=== PATIENT | male | born 1980 | race Hispanic/Latino ===

== ENCOUNTER 2017-05-21 14:27 | Emergency (ER) | payer SELFPAY ==
[2017-05-21] MEDS ORDERED: ONDANSETRON 4 MG (ODT) TAB ONE (15:46)
--- NOTE | 2017-05-21 16:08 | ER ---
Nurse's Notes [facility] Name: Anirudh Armando Age: 36 yrs Sex: Male : 1980 Arrival Date: 05/21/2017 Time: 14:28 Bed 18 Private MD: Diagnosis: Nausea Presentation: 05/21 14:38 Presenting complaint: Patient states: "I overheated and got dehydrated. I have bipolar lk1 disorder and PTSD and anxiety. I felt like I was going to and my whole body got numb and I was scared. My hand was cramped and I got light headed. I feel better, but my hands are still tingling." Denies suicidal ideations at this time. Transition of care: patient was not received from another setting of care. Onset of symptoms was May 21, 2017 at 13:30. Care prior to arrival: None. 14:38 Method Of Arrival: Ambulatory lk1 14:38 Acuity: ADOLPH 3 lk1 Triage Assessment: 14:42 General: Appears in no apparent distress. Behavior is calm, cooperative, appropriate lk1 for age. Pain: Complains of pain in right hand and left hand Pain currently is 10 out of 10 on a pain scale. Derm: Skin is pink, warm \\T\\ dry. Historical: - Allergies: 14:41 No Known Drug Allergies; lk1 - PMHx: 14:41 Anxiety; Bipolar disorder; Depression; PTSD; lk1 - PSHx: 14:41 None; lk1 - Immunization history:: Adult Immunizations up to date. - Social history:: Smoking status: Patient uses tobacco products, smokes one-half pack cigarettes per day. Screenin:55 Abuse screen: Denies threats or abuse. Nutritional screening: No deficits noted. rs2 Tuberculosis screening: No symptoms or risk factors identified. Fall Risk None identified. Assessment: 14:55 General: Appears distressed, well groomed, well developed, Behavior is cooperative, rs2 anxious, restless, Reports Pt states, "I was at work and felt a little overheated and started having one of my panic attacks and my hands started cramping. I'm proud of my self though, usually I get suicidal or homicidal when I think about my son getting murdered, but today I wasn't thinking about that and I've managed to calm myself back down. Now I just have a headache.". Pain: Complains of pain in face Pain currently is 5 out of 10 on a pain scale. Neuro: No deficits noted. Cardiovascular: No deficits noted. Respiratory: No deficits noted. GI: No deficits noted. : No deficits noted. EENT: No deficits noted. Musculoskeletal: No deficits noted. Vital Signs: 14:42 BP 111 / 76; Pulse 101; Resp 20; Temp 97.0(TE); Pulse Ox 97% on R/A; Weight 86.18 kg lk1 (R); Height 5 ft. 8 in. (172.72 cm); Pain 10/10; 16:25 BP 120 / 71; Pulse 89; Resp 18; Temp 97; Pulse Ox 99% ; Pain 0/10; rs2 14:42 Body Mass Index 28.89 (86.18 kg, 172.72 cm) lk1 ED Course: 14:28 Patient arrived in ED. as 14:41 Triage completed. lk1 14:44 Arm band placed on left wrist. lk1 14:46 [facility]. cp 14:46 Bonifacio Nieves MD is Attending Physician. cp 14:54 Estrellita Cleveland is Primary Nurse. rs2 14:55 Patient has correct armband on for positive identification. Bed in low position. Call rs2 light in reach. 16:03 EKG done, by shop tech. reviewed by Agustin MUÑOZ. at1 16:25 No provider procedures requiring assistance completed. Patient did not have IV access rs2 during this emergency room visit. Administered Medications: 15:31 Drug: Zofran 4 mg Route: PO; rs2 16:11 Follow up: Response: No adverse reaction; Marked relief of symptoms rs2 16:24 Follow up: Response: No adverse reaction; Marked relief of symptoms rs2 Outcome: 16:08 Discharge ordered by MD. cp 16:25 Discharged to home with family. rs2 16:25 Condition: improved 16:25 Discharge instructions given to patient, Instructed on discharge instructions, follow up and referral plans. Demonstrated understanding of Prescriptions given X 1. 16:27 Patient left the ED. rs2 Signatures: Karen Jones Amanda, wet milling wheel operator EKG Tat1 Agustin Lauren PA PA Patty Jason RN RN lk1 Cristofer, Estrellita rs2
--- NOTE | 2017-05-21 16:08 | EDPHYS ---
Physician Documentation [facility] Name: Anirudh Armando Age: 36 yrs Sex: Male : 1980 Arrival Date: 05/21/2017 Time: 14:28 Bed 18 Private MD: ED Physician Bonifacio Nieves HPI: 05/21 15:29 This 36 yrs old Male presents to ER via Ambulatory with complaints of Heat cp Exposure, Anxiety. 15:31 The patient presents to the emergency department with anxiety. Onset: The cp symptoms/episode began/occurred today, while at work. Past psychiatric history: Prior diagnosis: bipolar disorder, depression, Anxiety, PTSD, Psychiatric medications include: unknown. Associated signs and symptoms: Pertinent positives; nausea, dizziness, Pertinent negatives: abdominal pain, chest pain. Severity of symptoms: in the emergency department the symptoms have improved moderately. 15:35 Patient reports he had to leave work early today after he started having nausea, cp general paresthesias, body cramping, dizziness. Historical: - Allergies: 14:41 No Known Drug Allergies; lk1 - PMHx: 14:41 Anxiety; Bipolar disorder; Depression; PTSD; lk1 - PSHx: 14:41 None; lk1 - Immunization history:: Adult Immunizations up to date. - Social history:: Smoking status: Patient uses tobacco products, smokes one-half pack cigarettes per day. ROS: 15:35 Eyes: Negative for injury, pain, redness, and discharge. cp 15:35 Constitutional: Negative for body aches, chills, fever, poor PO intake. 15:35 ENT: Negative for drainage from ear(s), ear pain, sore throat, difficulty swallowing, difficulty handling secretions. 15:35 Cardiovascular: Negative for chest pain, edema, palpitations. 15:35 Respiratory: Negative for cough, shortness of breath, wheezing. 15:35 Abdomen/GI: Positive for nausea, Negative for abdominal pain, vomiting, diarrhea, constipation, black/tarry stool, rectal bleeding. 15:35 Skin: Negative for cellulitis, rash. 15:35 Neuro: Positive for dizziness, lightheaded, Negative for altered mental status, headache, syncope, near syncope, weakness. 15:35 Psych: Positive for anxiety, Negative for auditory hallucinations, visual hallucinations, suicide gesture, suicidal ideation. 15:35 All other systems are negative. Exam: 15:42 Constitutional: The patient appears in no acute distress, alert, awake, cp non-diaphoretic, non-toxic, well developed, well nourished. 15:42 Head/Face: Normocephalic, atraumatic. Eyes: Pupils equal round and reactive to light, cp extra-ocular motions intact. Lids and lashes normal. Conjunctiva and sclera are non-icteric and not injected. Cornea within normal limits. Periorbital areas with no swelling, redness, or edema. ENT: Nares patent. No nasal discharge, no septal abnormalities noted. Tympanic membranes are normal and external auditory canals are clear. Oropharynx with no redness, swelling, or masses, exudates, or evidence of obstruction, uvula midline. Mucous membranes moist. Chest/axilla: Normal chest wall appearance and motion. Nontender with no deformity. No lesions are appreciated. 15:42 Cardiovascular: Rate: tachycardic, Rhythm: regular, Pulses: Pulses are 2+ in right radial artery and left radial artery. Edema: is not appreciated, JVD: is not appreciated. 15:42 Respiratory: the patient does not display signs of respiratory distress, Respirations: normal, no use of accessory muscles, no retractions, no splinting, no tachypnea, labored breathing, is not present, Breath sounds: are clear throughout, no decreased breath sounds, no stridor, no wheezing. 15:42 Abdomen/GI: Inspection: abdomen appears normal, Bowel sounds: active, all quadrants, Palpation: abdomen is soft and non-tender, in all quadrants, rebound tenderness, is not appreciated, voluntary guarding, is not appreciated, involuntary guarding, is not appreciated. 15:42 Back: pain, is absent, ROM is normal. 15:42 Skin: cellulitis, is not appreciated, no rash present. 15:42 Neuro: Orientation: to person, place \T\ time. Mentation: is normal, Cerebellar function: is grossly normal, Motor: moves all fours, strength is normal, Sensation: no obvious gross deficits. 16:05 ECG was reviewed by the Attending Physician. cp Vital Signs: 14:42 BP 111 / 76; Pulse 101; Resp 20; Temp 97.0(TE); Pulse Ox 97% on R/A; Weight 86.18 kg lk1 (R); Height 5 ft. 8 in. (172.72 cm); Pain 10/10; 16:25 BP 120 / 71; Pulse 89; Resp 18; Temp 97; Pulse Ox 99% ; Pain 0/10; rs2 14:42 Body Mass Index 28.89 (86.18 kg, 172.72 cm) lk1 MDM: 14:47 Patient medically screened. cp 15:30 Differential diagnosis: drug withdrawal. acute psychotic break, psychosis secondary to cp non-compliance, cardiac arrythmia. 16:05 Data reviewed: vital signs, nurses notes, EKG, and as a result, I will discharge cp patient. 16:05 Test interpretation: by ED physician or midlevel provider: ECG. cp 16:05 Counseling: I had a detailed discussion with the patient and/or guardian regarding: the cp historical points, exam findings, and any diagnostic results supporting the discharge/admit diagnosis, to return to the emergency department if symptoms worsen or persist or if there are any questions or concerns that arise at home. 05/21 15:38 Order name: EKG; Complete Time: 15:39 05/21 15:38 Order name: EKG - Nurse/Tech; Complete Time: 16:11 cp EC:05 Rate is 86 beats/min. Rhythm is regular. MO interval is normal. QRS interval is normal. cp QT interval is normal. No ST changes noted. Interpreted by me. Reviewed by me. Administered Medications: 15:31 Drug: Zofran 4 mg Route: PO; rs2 16:11 Follow up: Response: No adverse reaction; Marked relief of symptoms rs2 16:24 Follow up: Response: No adverse reaction; Marked relief of symptoms rs2 Disposition: 16:32 Co-signature as Attending Physician, Bonifacio Nieves MD. rn Disposition: 05/21/17 16:08 Discharged to Home. Impression: Nausea. - Condition is Stable. - Discharge Instructions: Panic Attacks, Nausea, Adult. - Prescriptions for Zofran 4 mg Oral Tablet - take 1 tablet by ORAL route every 12 hours As needed; 20 tablet. - Medication Reconciliation Form, Thank You Letter, Antibiotic Education, Prescription Opioid Use, Work release form form. - Follow up: Private Physician; When: 1 - 2 days; Reason: Recheck today's complaints. - Problem is new. - Symptoms have improved. Signatures: Bonifacio Nieves MD MD rn Agustin Lauren PA PA cp Kluge Patty, RN RN lk1 Cristofer, Estrellita rs2
--- NOTE | 2017-05-21 16:24 | EKG ---
Test Date: 2017-05-21 Test Time: 15:59:11 Supplier Quality Manager: LORELEI MEASUREMENT RESULTS: Intervals: Rate: 86 AR: 144 QRSD: 80 QT: 346 QTc: 414 [place]: P: 62 AR: 144 QRS: 61 T: 39 INTERPRETIVE STATEMENTS: Normal sinus rhythm Normal ECG No previous ECG available for comparison Electronically Signed On 05-21-17 16:24:09 CDT by Sid Garcia
== END 2017-05-21 16:27 | disposition home or self-care (01) ==
LOC: ER 14:27
DX: F17.210 Nicotine dependence, cigarettes, uncomplicated; R11.0 Nausea
CPT/HCPCS: 93005; 99283

== ENCOUNTER 2017-06-19 15:43 | Emergency (ER) | payer SELFPAY ==
[2017-06-19] MEDS ORDERED: NA CHLORIDE 0.9% 1,000 ML ONE ×3 (16:25→19:42)
[2017-06-19] MEDS ORDERED: DIPHENHYDRAMINE 50 MG/ML VIAL ONE (16:25)
[2017-06-19] MEDS ORDERED: ONDANSETRON 4 MG/2 ML VIAL ONE ×2 (16:25→17:39)
[2017-06-19 16:42] LABS: Absolute Lymphocytes (CBC) 1.1 K/uL (0.7-4.9); Absolute Neutrophil 9.2 K/uL (1.8-8.0); Basophils % 0.6 % (0-1.3); Eosinophils % 0.1 % (0-4.4); Hematocrit 50.4 % (39.6-49.0); MCH 29.9 pg (27.0-35.0); MPV 7.7 fL (7.6-11.3); Monocytes % 8.6 % (3.3-12.3); RBC Red Blood Cell Count 5.67 M/uL (4.33-5.43)
[2017-06-19 16:59] LABS: Potassium 3.1 mEq/L (3.6-5.0)
[2017-06-19 17:06] LABS: Bilirubin Direct 0.1 mg/dL (0-0.2); Bilirubin Total 1.1 mg/dL (0.3-1.2); Magnesium 1.9 mg/dL (1.8-2.5)
[2017-06-19 17:08] LABS: CKMB Creatine Kinase MB 3.2 ng/ml (0.3-4.0)
[2017-06-19] MEDS ORDERED: ASPIRIN 81 MG CHEWABLE TABLET ONE (17:34)
[2017-06-19] MEDS ORDERED: MORPHINE 4 MG/ML SYR ONE (17:39)
[2017-06-19] MEDS ORDERED: PANTOPRAZOLE 40 MG INJ ONE (17:39)
--- NOTE | 2017-06-19 18:18 | RAD REPORT ---
EXAM DESCRIPTION: CT - Chest Abd Pelvis Wo Con - 06/19/2017 6:03 pm CLINICAL HISTORY: Chest and abdominal pain. Right lower quadrant pain. COMPARISON: None TECHNIQUE: Computed axial tomography of the chest, abdomen and pelvis was obtained. Oral contrast wa s given. IV contrast was not requested. All CT scans are performed using dose optimization technique as appropriate and may include automated exposure control or mA/KV adjustment according to patient size. FINDINGS: The evaluation of mediastinum, renetta, vessels and solid organs is limited secondary to the lack of IV contrast administration No mediastinal or hilar lymphadenopathy is seen. A pleural effusion is not present. A pericardial effusion is not seen. The lungs essentially clear. The liver, spleen, pancreas, adrenals and kidneys appear grossly normal There is no evidence of diverticulitis. The appendix is normal IMPRESSION: Unremarkable unenhanced CT chest, abdomen and pelvis
--- NOTE | 2017-06-19 18:30 | EKG ---
Test Date: 2017-06-19 Test Time: 16:33:12 Banker Mason: LORELEI MEASUREMENT RESULTS: Intervals: Rate: 91 OK: 136 QRSD: 82 QT: 362 QTc: 445 [place]: P: 78 OK: 136 QRS: 82 T: 52 INTERPRETIVE STATEMENTS: Normal sinus rhythm Right atrial enlargement ST elevation, probably due to early repolarization Borderline ECG Compared to ECG 05/21/2017 15:59:11 Atrial abnormality now present ST (T wave) deviation now present Early repolarization now present Electronically Signed On 06-19-17 18:29:30 CDT by Tl Roa
[2017-06-19] MEDS ORDERED: KCL 20 MEQ/100 mL IVPB 20 MEQ/100 ML BAG IV ONE (18:31)
--- NOTE | 2017-06-19 19:32 | ER ---
Nurse's Notes [facility] Name: Anirudh Armando Age: 36 yrs Sex: Male : 1980 Arrival Date: 06/19/2017 Time: 15:43 Bed 7 Private MD: Diagnosis: Presentation: 06/19 15:47 Presenting complaint: Patient states: "anxiety attack that has been going on all day. " aj Patient arrived hyperventilating with reported tingling to bilateral fingers. Placed on NRB mask. Symptoms resolved after mask application. Transition of care: patient was not received from another setting of care. Onset of symptoms was June 19, 2017. Initial Sepsis Screen: Does the patient meet any 2 criteria? No. Patient's initial sepsis screen is negative. Does the patient have a suspected source of infection? No. Patient's initial sepsis screen is negative. Care prior to arrival: None. 15:47 Method Of Arrival: Wheelchair 15:47 Acuity: ADOLPH 3 hb Triage Assessment: 15:50 General: Appears in no apparent distress. comfortable, Behavior is cooperative, aj anxious. Pain: Denies pain. Neuro: Level of Consciousness is awake, alert, obeys commands, Oriented to person, place, time, situation, Appropriate for age. Respiratory: Airway is patent Respiratory effort is even, unlabored, Respiratory pattern is regular, symmetrical. Derm: Skin is intact, is healthy with good turgor, Skin is pink, warm \\T\\ dry. normal. Historical: - Allergies: 15:50 No Known Allergies; aj - Home Meds: 15:50 None [Active]; aj - PMHx: 15:50 Anxiety; Bipolar disorder; Depression; PTSD; aj - PSHx: 15:50 None; aj - Immunization history:: Adult Immunizations up to date. - Social history:: Smoking status: Patient uses tobacco products, smokes one-half pack cigarettes per day, Patient uses street drugs, cocaine, Methamphetamine (Meth). Screenin:21 Abuse screen: Denies threats or abuse. Denies injuries from another. Nutritional sv screening: No deficits noted. Tuberculosis screening: No symptoms or risk factors identified. Fall Risk None identified. Assessment: 16:18 General: Appears uncomfortable, Behavior is cooperative, anxious. Neuro: Level of sv Consciousness is awake, alert, obeys commands, Oriented to person, place, time, situation, Moves all extremities. Full function Gait is steady, Speech is normal. Respiratory: Respiratory effort is even, unlabored, Respiratory pattern is regular, symmetrical. GI: Pt is actively vomiting clear fluid, Informed Agustin PA Reports nausea, usually happens after he has an anxiety attack. Derm: Skin is normal. Musculoskeletal: Range of motion: intact in all extremities. 16:18 Cardiovascular: Reports chest pain, nausea, vomiting. sv 17:38 Reassessment: Patient appears in no apparent distress at this time. Patient and/or sv family updated on plan of care and expected duration. Pain level reassessed. Patient is alert, oriented x 3, equal unlabored respirations, skin warm/dry/pink. 18:48 Reassessment: Patient appears in no apparent distress at this time. Patient and/or sv family updated on plan of care and expected duration. Pain level reassessed. Patient is alert, oriented x 3, equal unlabored respirations, skin warm/dry/pink. Patient states feeling better. Patient states symptoms have improved. 19:14 Reassessment: Patient appears in no apparent distress at this time. Patient and/or ak1 family updated on plan of care and expected duration. Pain level reassessed. Patient is alert, oriented x 3, equal unlabored respirations, skin warm/dry/pink. pt informed of admission status and wait for room assignment. Patient denies pain at this time. Patient states feeling better. Patient states symptoms have improved. 20:36 Reassessment: Patient appears in no apparent distress at this time. Patient and/or ao family updated on plan of care and expected duration. Pain level reassessed. Patient is alert, oriented x 3, equal unlabored respirations, skin warm/dry/pink. Waiting on a hospital room assigment. 21:29 Reassessment: Called report to LONG Mendez. Patient to be taking to his room. Patient ao appears under no distress at this moment. VS stable. 21:46 Reassessment: Patient called to and stated he is leaving. Patient IV was pulled out. ao Patient sing the AMA form and agree to come back is any chest pain or SOB occurs. Educations was provided but patient still left AMA. Dr Wilson was notified. Vital Signs: 15:50 BP 105 / 83; Pulse 117; Resp 40; Temp 98.2; Pulse Ox 100% on R/A; Weight 79.38 kg; aj Height 5 ft. 8 in. (172.72 cm); Pain 0/10; 15:51 Resp 18; Pulse Ox 100% on 0% Non-rebreather mask; aj 17:39 BP 144 / 95; Pulse 99 MON; Resp 18; Pulse Ox 100% ; sv 18:48 BP 141 / 89; Pulse 99 MON; Resp 13; Pulse Ox 100% on R/A; Pain 4/10; sv 19:20 BP 140 / 84; Pulse 98; Resp 14; Pulse Ox 99% on R/A; Pain 0/10; ao 20:36 BP 139 / 86; Pulse 105; Resp 16; Pulse Ox 100% on R/A; Pain 0/10; ao 21:29 BP 131 / 84; Pulse 115; Resp 20; Pulse Ox 100% on R/A; Pain 0/10; ao 15:50 Body Mass Index 26.61 (79.38 kg, 172.72 cm) aj 17:39 Sinus Rhythm sv 18:48 Sinus Rhythm sv ED Course: 15:43 Patient arrived in ED. as 15:49 Triage completed. aj 15:51 Arm band placed on right wrist. Patient placed in waiting room, in a wheelchair, aj Patient notified of wait time. 16:09 Una Duque, RN is Primary Nurse. sv 16:09 Agustin Lauren PA is PHCP. cp 16:09 Bonifacio Nieves MD is Attending Physician. cp 16:21 Patient has correct armband on for positive identification. Bed in low position. Call sv light in reach. Adult w/ patient. Door closed. Head of bed elevated. 16:39 EKG done, by earth science technical officer. reviewed by Agustin MUÑOZ. at1 16:47 Initial lab(s) drawn, by ED staff, sent to lab. Inserted saline lock: 20 gauge in right sv antecubital area, using aseptic technique. Blood collected. 17:25 monitoring and evaluation advisor on. Pulse ox on. NIBP on. sv 17:38 EKG done, by ED staff, reviewed by Agustin MUÑOZ. sv 18:02 CT Chest Abdomen Pelvis W/O Contrast In Process Unspecified. EDMS 18:05 CT completed. Patient tolerated procedure well. Patient moved to CT via stretcher. vr Patient moved back from CT. 19:06 Primary Nurse role handed off by Una Duque, LONG sv 19:13 Hoda Law, LONG is Primary Nurse. ak1 19:30 Judith Wilson MD is Hospitalizing Provider. cp 21:28 No provider procedures requiring assistance completed. Patient admitted, IV remains in ao place. Administered Medications: Discontinued: NS 0.9% 1000 ml IV at 125 ml/hr continuous 16:46 Drug: Benadryl 25 mg Route: IVP; Site: right antecubital; sv 17:38 Follow up: Response: No adverse reaction hb 16:46 Drug: NS 0.9% 1000 ml Route: IV; Rate: 1 bolus; Site: right antecubital; sv 17:50 Follow up: Response: No adverse reaction; IV Status: Completed infusion; IV Intake: sv 1000ml 16:47 Drug: Zofran 4 mg Route: IVP; Site: right antecubital; sv 17:37 Follow up: Response: No adverse reaction hb 17:43 Drug: Aspirin Chewable Tablet 324 mg Route: PO; hb 18:27 Follow up: Response: No adverse reaction sv 17:44 Drug: morphine 4 mg Route: IVP; Site: right antecubital; hb 18:26 Follow up: Response: No adverse reaction sv 17:44 Drug: Zofran 4 mg Route: IVP; Site: right antecubital; hb 18:26 Follow up: Response: No adverse reaction sv 17:44 Drug: ProTONIX 40 mg Route: IVP; Site: right antecubital; hb 18:26 Follow up: Response: No adverse reaction sv 18:47 Drug: NS 0.9% 1000 ml Route: IV; Rate: 1 bolus; Site: right antecubital; sv 20:00 Follow up: IV Status: Completed infusion; IV Intake: 1000ml ao 18:47 Drug: Potassium Chloride 20 mEq Route: IV; Rate: calculated rate; Site: right sv antecubital; 21:00 Follow up: IV Status: Completed infusion; IV Intake: 100ml ao 19:54 Drug: Lovenox 1 mg/kg Route: Sub-Q; Site: abdomen; ao 23:07 Follow up: Response: No adverse reaction ao 19:54 Drug: NS 0.9% 1000 ml Route: IV; Rate: 125 ml/hr; Site: right antecubital; ao 22:00 Follow up: IV Status: Infusion continued upon admission ao Intake: 17:50 IV: 1000ml; Total: 1000ml. sv Outcome: 19:32 Decision to Hospitalize by Provider. cp 21:28 AMA AMA form signed ao 21:28 Condition: stable 21:28 Instructed on the need for admit. 21:45 Instructed on Patient left AMA and was told to comeback is any chest pain or SOB occurs ao 21:48 Patient left the ED. ao Signatures: Dispatcher [employer] Una Salazar RN RN sv Myers, Amanda, RN RN aj Martinez, Amelia as Davis, Victoria vr gonzales, Amanda, cotton ball bagger EKG Tat1 Hoda Law RN RN ak1 Agustin Lauren PA PA cp Ortiz, Alex RN Yanely Pastrana RN RN hb Corrections: (The following items were deleted from the chart) 16:49 15:47 Acuity: ADOLPH 4 aj hb 17:39 16:18 Respiratory: Respiratory effort is even, unlabored, Respiratory pattern is sv regular, symmetrical, sv 18:49 18:48 BP 141 / 89; Pulse 99bpm; Monitor: Sinus RhythmResp 13bpm; Pulse Ox 100% RA; sv sv 21:46 21:28 Admitted to Tele accompanied by tech, room 421, with chart, Report called to LONG Prince
--- NOTE | 2017-06-19 19:33 | EDPHYS ---
Physician Documentation [facility] Name: Anirudh Armando Age: 36 yrs Sex: Male : 1980 Arrival Date: 06/19/2017 Time: 15:43 Bed 7 Private MD: ED Physician Bonifacio Nieves HPI: 06/19 16:15 This 36 yrs old Male presents to ER via Wheelchair with complaints of Anxiety. cp 16:15 The patient presents to the emergency department with anxiety. cp 16:15 Onset: The symptoms/episode began/occurred today, and became worse. Past psychiatric cp history: Prior diagnosis: bipolar disorder, depression, Psychiatric medications include: none. Associated signs and symptoms: Pertinent positives; abdominal pain, chest pain, nausea, vomiting, Pertinent negatives: shortness of breath. Severity of symptoms: in the emergency department the symptoms are unchanged. 17:30 Patient admits to use of methamphetamine and cocaine approximately 1 week ago. cp Historical: - Allergies: 15:50 No Known Allergies; aj - Home Meds: 15:50 None [Active]; aj - PMHx: 15:50 Anxiety; Bipolar disorder; Depression; PTSD; aj - PSHx: 15:50 None; aj - Immunization history:: Adult Immunizations up to date. - Social history:: Smoking status: Patient uses tobacco products, smokes one-half pack cigarettes per day, Patient uses street drugs, cocaine, Methamphetamine (Meth). ROS: 16:30 Constitutional: Negative for body aches, chills, fever, poor PO intake. cp 16:30 Eyes: Negative for injury, pain, redness, and discharge. cp 16:30 ENT: Negative for drainage from ear(s), ear pain, sore throat, difficulty swallowing, difficulty handling secretions. 16:30 Neck: Negative for pain with movement, pain at rest, stiffness, swollen nodes. 16:30 Cardiovascular: Positive for chest pain, Negative for edema, palpitations. 16:30 Respiratory: Negative for cough, shortness of breath, wheezing. 16:30 Abdomen/GI: Positive for abdominal pain, nausea, vomiting, Negative for diarrhea, constipation, black/tarry stool, rectal bleeding. 16:30 Back: Negative for pain at rest, pain with movement, radiated pain. 16:30 : Negative for urinary symptoms. 16:30 Skin: Negative for cellulitis, rash. 16:30 Neuro: Negative for altered mental status, headache, seizure activity, weakness. 16:30 Psych: Positive for anxiety. 16:30 All other systems are negative. Exam: 16:35 Constitutional: The patient appears in no acute distress, alert, awake, cp non-diaphoretic, non-toxic, well developed, well nourished. 16:35 Head/Face: Normocephalic, atraumatic. cp 16:35 Eyes: Periorbital structures: appear normal, Pupils: equal, round, and reactive to light and accomodation, Extraocular movements: intact throughout, Conjunctiva: normal, no exudate, no injection, Sclera: no appreciated abnormality, Lids and lashes: appear normal, bilaterally. 16:35 ENT: External ear(s): are unremarkable, Ear canal(s): are normal, clear, TM's: bulging, is not appreciated, bilaterally, dullness, bilaterally, erythema, is not appreciated, bilaterally, Nose: is normal, Mouth: Lips: moist, Oral mucosa: pink and intact, moist, Posterior pharynx: Airway: no evidence of obstruction, patent, Tonsils: are normal in appearance, swelling, is not appreciated, erythema, is not appreciated, exudate, is not appreciated, Voice: is normal. 16:35 Neck: ROM/movement: is normal, is supple, without pain, no range of motions limitations, no meningismus, no nuchal rigidity. 16:35 Chest/axilla: Inspection: normal, Palpation: is normal, no crepitus, no tenderness. 16:35 Cardiovascular: Rate: tachycardic, Rhythm: regular, Pulses: Pulses are 2+ in right radial artery and left radial artery. Edema: is not appreciated, JVD: is not appreciated. 16:35 Respiratory: the patient does not display signs of respiratory distress, Respirations: normal, no use of accessory muscles, no retractions, no splinting, no tachypnea, labored breathing, is not present, Breath sounds: are clear throughout, no decreased breath sounds, no stridor, no wheezing. 16:35 Abdomen/GI: Inspection: abdomen appears normal, Bowel sounds: active, all quadrants, Palpation: soft, in all quadrants, moderate abdominal tenderness, in the right lower quadrant, rebound tenderness, is not appreciated, voluntary guarding, is elicited in the right lower quadrant, involuntary guarding, is not appreciated. 16:35 Back: pain, is absent, ROM is normal. 16:35 Skin: cellulitis, is not appreciated, no rash present. 16:35 Neuro: Orientation: to person, place \T\ time. Mentation: lucid, able to follow commands, Cerebellar function: is grossly normal, Motor: moves all fours, strength is normal, Sensation: no obvious gross deficits. 16:40 ECG was reviewed by the Attending Physician. cp Vital Signs: 15:50 BP 105 / 83; Pulse 117; Resp 40; Temp 98.2; Pulse Ox 100% on R/A; Weight 79.38 kg; aj Height 5 ft. 8 in. (172.72 cm); Pain 0/10; 15:51 Resp 18; Pulse Ox 100% on 0% Non-rebreather mask; aj 17:39 BP 144 / 95; Pulse 99 MON; Resp 18; Pulse Ox 100% ; sv 18:48 BP 141 / 89; Pulse 99 MON; Resp 13; Pulse Ox 100% on R/A; Pain 4/10; sv 19:20 BP 140 / 84; Pulse 98; Resp 14; Pulse Ox 99% on R/A; Pain 0/10; ao 20:36 BP 139 / 86; Pulse 105; Resp 16; Pulse Ox 100% on R/A; Pain 0/10; ao 21:29 BP 131 / 84; Pulse 115; Resp 20; Pulse Ox 100% on R/A; Pain 0/10; ao 15:50 Body Mass Index 26.61 (79.38 kg, 172.72 cm) aj 17:39 Sinus Rhythm sv 18:48 Sinus Rhythm sv MDM: 16:10 Patient medically screened. cp 17:00 Differential diagnosis: drug withdrawal. acute psychotic break, acute TX, anxiety, cp acute renal failure. 18:30 Data reviewed: vital signs, nurses notes, lab test result(s), EKG, radiologic studies, cp plain films. 18:30 Test interpretation: by ED physician or midlevel provider: ECG, plain radiologic cp studies. Counseling: I had a detailed discussion with the patient and/or guardian regarding: the historical points, exam findings, and any diagnostic results supporting the discharge/admit diagnosis, lab results, radiology results, the need for further work-up and treatment in the hospital. 19:28 Physician consultation: Judith Wilson MD was called at 19:30, was contacted at 19:30, regarding admission, to the telemetry unit. patient's condition. 06/19 16:21 Order name: Amylase, Serum; Complete Time: 17:30 cp 06/19 16:21 Order name: Basic Metabolic Panel; Complete Time: 17:30 cp 06/19 17:47 Interpretation: Normal except: K 3.1; CL 98; CO2 20; GLUC 136; CRE 2.03; GFR 37. cp 06/19 16:21 Order name: CBC with Diff; Complete Time: 17:30 cp 06/19 17:48 Interpretation: Normal except: WBC 11.4; RBC 5.67; HCT 50.4; SATISH% 80.7; LYM% 10.0; NEUT cp A 9.2. 06/19 16:21 Order name: Creatinine for Radiology; Complete Time: 17:30 cp 06/19 16:21 Order name: Hepatic Function; Complete Time: 17:30 cp 06/19 16:21 Order name: Lipase; Complete Time: 17:30 cp 06/19 16:21 Order name: Urine Microscopic Only cp 06/19 16:21 Order name: UDS cp 06/19 16:21 Order name: Magnesium; Complete Time: 17:30 cp 06/19 16:21 Order name: Troponin I; Complete Time: 17:30 cp 06/19 16:21 Order name: Ckmb; Complete Time: 17:30 cp 06/19 16:21 Order name: CK; Complete Time: 17:30 06/19 17:51 Order name: CT Chest Abdomen Pelvis W/O Contrast; Complete Time: 18:26 cp 06/19 18:26 Interpretation: Report reviewed. 06/19 16:11 Order name: EKG; Complete Time: 16:11 06/19 16:11 Order name: EKG - Nurse/Tech; Complete Time: 16:47 cp 06/19 16:21 Order name: IV Saline Lock; Complete Time: 16:47 cp 06/19 16:21 Order name: Labs collected and sent; Complete Time: 16:47 cp EC:40 Rate is 91 beats/min. Rhythm is regular. IL interval is normal. QRS interval is normal. cp QT interval is normal. T waves are Normal. Interpreted by me. Reviewed by me. Administered Medications: Discontinued: NS 0.9% 1000 ml IV at 125 ml/hr continuous 16:46 Drug: Benadryl 25 mg Route: IVP; Site: right antecubital; sv 17:38 Follow up: Response: No adverse reaction hb 16:46 Drug: NS 0.9% 1000 ml Route: IV; Rate: 1 bolus; Site: right antecubital; sv 17:50 Follow up: Response: No adverse reaction; IV Status: Completed infusion; IV Intake: sv 1000ml 16:47 Drug: Zofran 4 mg Route: IVP; Site: right antecubital; sv 17:37 Follow up: Response: No adverse reaction hb 17:43 Drug: Aspirin Chewable Tablet 324 mg Route: PO; hb 18:27 Follow up: Response: No adverse reaction sv 17:44 Drug: morphine 4 mg Route: IVP; Site: right antecubital; hb 18:26 Follow up: Response: No adverse reaction sv 17:44 Drug: Zofran 4 mg Route: IVP; Site: right antecubital; hb 18:26 Follow up: Response: No adverse reaction sv 17:44 Drug: ProTONIX 40 mg Route: IVP; Site: right antecubital; hb 18:26 Follow up: Response: No adverse reaction sv 18:47 Drug: NS 0.9% 1000 ml Route: IV; Rate: 1 bolus; Site: right antecubital; sv 20:00 Follow up: IV Status: Completed infusion; IV Intake: 1000ml ao 18:47 Drug: Potassium Chloride 20 mEq Route: IV; Rate: calculated rate; Site: right sv antecubital; 21:00 Follow up: IV Status: Completed infusion; IV Intake: 100ml ao 19:54 Drug: Lovenox 1 mg/kg Route: Sub-Q; Site: abdomen; ao 23:07 Follow up: Response: No adverse reaction ao 19:54 Drug: NS 0.9% 1000 ml Route: IV; Rate: 125 ml/hr; Site: right antecubital; ao 22:00 Follow up: IV Status: Infusion continued upon admission ao Disposition: 17:35 Co-signature as Attending Physician, Bonifacio Nieves MD Patient with mild chest pain, rn complains more of abd pain, admits to recent marijuana and cocaine use, ECG shows very mild st elevation only in leads V2/V3, no reciprocal changes, not likely acute occlusive event, will give morphine/aspirin, admit for rule out and cardiac consult. . Disposition: 06/19/17 21:48 Patient has left against medical advice. - Patients states they are going to Home. - Condition is Stable. Signatures: Dispatcher [employer] Una Salazar, Jess Carmen RN, RN RN aj Nieto, Roman, MD MD rn Page, Corey, PA PA cp Ortiz, Alex, RN RN ao Baxter, Heather, RN RN hb
[2017-06-19] MEDS ORDERED: ENOXAPARIN 100 MG/ML SYR SQ ONE (19:42)
[2017-06-19] MEDS ORDERED: MORPHINE 4 MG/ML SYR IV PRN (20:08)
[2017-06-19] MEDS ORDERED: ONDANSETRON 4 MG/2 ML VIAL IV PRN (20:08)
[2017-06-19] MEDS ORDERED: ACETAMINOPHEN 500 MG TAB PO PRN (20:08)
[2017-06-19] MEDS ORDERED: NA CHLORIDE 0.9% 1,000 ML IV SCH (21:00)
--- NOTE | 2017-06-20 15:43 | EKG ---
Test Date: 2017-06-19 Test Time: 17:34:10 [employer] Etcher: EMILIANO MEASUREMENT RESULTS: Intervals: Rate: 91 IA: 134 QRSD: 82 QT: 358 QTc: 440 [place]: P: 3 IA: 134 QRS: 53 T: 24 INTERPRETIVE STATEMENTS: Normal sinus rhythm Normal ECG Compared to ECG 06/19/2017 16:33:12 Atrial abnormality no longer present ST (T wave) deviation no longer present Early repolarization no longer present Electronically Signed On 06-20-17 15:38:05 CDT by Sid Garcia
== END 2017-06-19 21:48 | disposition left against medical advice (07) ==
LOC: ER 15:43 → UNDOADMOB 19:32 → ERHOLD 19:32 → 4TH 21:24 → UNDODISOB 21:54
DX: F41.9 Anxiety disorder, unspecified (principal); F32.9 Major depressive disorder, single episode, unspecified; F43.10 Post-traumatic stress disorder, unspecified; F17.210 Nicotine dependence, cigarettes, uncomplicated
CPT/HCPCS: 36415; 71250; 74176; 80048; 80076; 82150; 82550; 82553; 83690; 83735; 84484; 85025; 93005; 96361; 96365; 96366; 96372; 96375; 99285; C9113; G0378; J1650; J2405; J7030

== ENCOUNTER 2017-08-20 23:22 | Emergency (ER) | payer SELFPAY ==
[2017-08-20] MEDS ORDERED: LORazepam 2 MG/ML VIAL ONE (23:38)
[2017-08-20] MEDS ORDERED: NA CHLORIDE 0.9% 1,000 ML ONE (23:38)
[2017-08-21 00:01] LABS: Absolute Lymphocytes (CBC) 1.5 K/uL (0.7-4.9); Absolute Monocytes 0.9 K/uL (0.1-1.3); Absolute Neutrophil 7.9 K/uL (1.8-8.0); Basophils % 0.6 % (0-1.3); Eosinophils % 0.2 % (0-4.4); Hematocrit 44.8 % (39.6-49.0); Lymphocytes % 14.8 % (15.3-44.8); MCH 30.3 pg (27.0-35.0); MCV 89.8 fL (80-100); MPV 7.7 fL (7.6-11.3); Monocytes % 8.5 % (3.3-12.3); RBC Red Blood Cell Count 4.99 M/uL (4.33-5.43)
[2017-08-21 00:02] LABS: Protime INR 1.15
[2017-08-21 00:35] LABS: ALT/SGPT 21 U/L (12-78); AST/SGOT 20 U/L (15-37); Albumin 4.3 g/dL (3.4-5.0); Alkaline Phosphatase 66 U/L (45-117); BUN Blood Urea Nitrogen 12 mg/dL (7-18); Bicarbonate 26 mmol/L (21-32); Bilirubin Direct 0.1 mg/dL (0-0.2); Bilirubin Total 0.6 mg/dL (0.2-1.0); Glucose Level 137 mg/dL (74-106); Protein, Total 7.5 g/dL (6.4-8.2); Sodium Level 137 mmol/L (136-145)
[2017-08-21 00:36] LABS: Potassium 2.7 mmol/L (3.5-5.1)
[2017-08-21 00:44] LABS: Alcohol Serum/Plasma 11 mg/dL (0-3)
[2017-08-21 00:57] LABS: Urine Blood NEGATIVE (NEG); Urine Glucose NEGATIVE (NEG); Urine Protein 2+ (NEG); Urine Specific Gravity 1.025 (1.005-1.030); Urine pH 6.5 (5.0-7.0)
[2017-08-21 01:06] LABS: Barbiturates NEGATIVE (NEGATIVE); Benzodiazepines NEGATIVE (NEGATIVE); Cocaine NEGATIVE (NEGATIVE); METHAMPHETAM POSITIVE (NEGATIVE); Methadone NEGATIVE (NEGATIVE); Opiates NEGATIVE (NEGATIVE); Phencyclidine NEGATIVE (NEGATIVE); THC Cannibis POSITIVE (NEGATIVE)
[2017-08-21] MEDS ORDERED: POTASSIUM CL SA 10 MEQ TAB PO ONE (01:06)
--- NOTE | 2017-08-21 06:19 | ER ---
Nurse's Notes [facility] Name: Anirudh Armando Age: 37 yrs Sex: Male : 1980 Arrival Date: 08/20/2017 Time: 23:24 Bed 18 Private MD: Diagnosis: Suicidal ideations;Abuse of non-psychoactive substances;Adverse effect of amphetamines Presentation: 08/20 23:25 Presenting complaint: EMS states: pt was running toward PD station with suicidal ak1 ideations. pt stated "he is going crazy, someone was chasing him last night" pt with hx SI. pt denies attempts of harm at this time. pt stated he "only has thoughts" pt calm and cooperative at this time. Transition of care: patient was not received from another setting of care. Onset of symptoms is unknown. Risk Assessment: Do you want to hurt yourself or someone else? Patient reports desire/thoughts of hurting themselves or someone else. Provider notified. Initial Sepsis Screen: Does the patient meet any 2 criteria? No. Patient's initial sepsis screen is negative. Does the patient have a suspected source of infection? No. Patient's initial sepsis screen is negative. Note pt with police at bedside. Care prior to arrival: None. 23:25 Method Of Arrival: EMS: [facility] ak1 23:25 Acuity: ADOLPH 2 ak1 Triage Assessment: 23:30 General: Appears in no apparent distress. Behavior is calm, cooperative. Pain: Denies ak1 pain. EENT: No signs and/or symptoms were reported regarding the EENT system. Neuro: Level of Consciousness is awake, alert, obeys commands, Oriented to person, place, time, situation, Lead Data Architect are equal bilaterally Moves all extremities. Gait is steady, Speech is normal, Facial symmetry appears normal. Cardiovascular: No deficits noted. Respiratory: No deficits noted. GI: No signs and/or symptoms were reported involving the gastrointestinal system. : No signs and/or symptoms were reported regarding the genitourinary system. Derm: No signs and/or symptoms reported regarding the dermatologic system. Musculoskeletal: No signs and/or symptoms reported regarding the musculoskeletal system. 08/21 19:20 General: Denies SOB,CP, no other complaints at this time. kk5 Historical: - Allergies: 08/20 23:30 No Known Allergies; ak1 - Home Meds: 23:30 None [Active]; ak1 - PMHx: 23:30 Anxiety; Bipolar disorder; PTSD; Depression; ak1 - PSHx: 23:30 None; ak1 - Immunization history:: Adult Immunizations unknown. - Social history:: Smoking status: unknown Patient uses street drugs, Methamphetamine (Meth). - Family history:: not pertinent, not pertinent. - Ebola Screening: : No symptoms or risks identified at this time. - Hospitalizations: : No recent hospitalization is reported. Screenin:34 Abuse screen: Denies threats or abuse. Denies injuries from another. Nutritional ak1 screening: No deficits noted. Tuberculosis screening: No symptoms or risk factors identified. Fall Risk None identified. Assessment: 23:35 Reassessment: Patient appears in no apparent distress at this time. No changes from ak1 previously documented assessment. see triage assessment. 08/21 00:11 Reassessment: Patient appears in no apparent distress at this time. No changes from ak1 previously documented assessment. Patient and/or family updated on plan of care and expected duration. Pain level reassessed. pt sister and niece at bedside. [facility] [employer] left due to pt cooperativeness. . 01:24 Reassessment: Patient appears in no apparent distress at this time. No changes from ak1 previously documented assessment. Patient and/or family updated on plan of care and expected duration. Pain level reassessed. pt and family at bedside updated on transfer process and the length of time. 02:10 Reassessment: Patient appears in no apparent distress at this time. No changes from ak1 previously documented assessment. Patient and/or family updated on plan of care and expected duration. Pain level reassessed. Patient is alert, oriented x 3, equal unlabored respirations, skin warm/dry/pink. 02:34 Reassessment: Sister, Hien Sanchez, left phone number for any questions or concerns; lp1 [phone]. 03:33 Reassessment: Patient appears in no apparent distress at this time. No changes from ak1 previously documented assessment. Patient and/or family updated on plan of care and expected duration. Pain level reassessed. Patient is alert, oriented x 3, equal unlabored respirations, skin warm/dry/pink. pt stated he wanted to "check" himself out. pt was informed again about the Snf warrant and the transfer process. 03:57 Reassessment: Patient appears in no apparent distress at this time. No changes from ak1 previously documented assessment. Patient and/or family updated on plan of care and expected duration. Pain level reassessed. Patient is alert, oriented x 3, equal unlabored respirations, skin warm/dry/pink. pt threatened nurse if she came close to given Ativan IV. pt informed again that he had the longterm warrant and the the police would be contacted if he choose not to cooperate. 04:10 Reassessment: pt now asking for Ativan. pt stated he was "pissed off and didn't want it ak1 right then" pt stated he now "wants his shot". 04:28 Reassessment: [facility] screener at bedside. . ak1 06:02 Reassessment: pt removed IV, refused to stay, left out ER back doors in hospital gown ak1 and shorts. pt was told again prior to his leaving he had a longterm warrant and that [place] [employer] would be on the way. [place] dispatch contacted.. 06:16 Reassessment: [place] Officers arrived and notified of mental health longterm ak1 warrant as well as pt's threats to staff. pt description given to officers. . 06:40 Reassessment: pt returned by Jadiel ADORNO in handcuffs. [place] officer stated ak1 they have contacted mental health officer. [place] [employer] stated they would stay with pt until mental health deputy shows up to ER. 06:40 Reassessment: [facility] officer stated Mental Health contacted them back stating ak1 it is the hospitals responsibility to "restrain" the patient. The officer was informed of the previous attempt to give the pt Ativan IV, when pt threatened nurse. Officer stated he would keep pt hand cuffed for the administration of chemical restraint of pt. Officer informed of the need for a physicians order to chemically restrain pt and the possible need for new IV access to preform restraint. 07:02 Reassessment: Dr. Nieves gave orders to charge nurse for IM Ativan with orders to wait ak1 30 minuets. [place] officers agreed to wait for 30 minuets then uncuff pt and see if pt is more corporative. report given to NARA Arizmendi RN and Radha Marcial RN. 07:05 Reassessment: Pt currently in handcuffs by Jadiel ADORNO. 2 PD officers at bedside, aa5 pt lying down in bed resting with eyes closed, respirations are even and unlabored, skin is pink/warm/dry. . 07:20 Reassessment: Dr. Escalona at bedside. Pt uncuffed by PD. Pt cooperative at this time. aa5 Pt appears calm. Pt states "I felt suicidal only because I thought people were chasing me". When asked if he remains suicidal pt refuses to answer, pt states "I don't know what I am thinking, I just want to sleep". Pt lying down in bed at this time, warm blankets given. . 07:20 General: Appears comfortable, Behavior is calm, cooperative. Pain: Denies pain. Neuro: aa5 Level of Consciousness is awake, alert, obeys commands, Oriented to person, place, time, situation. Cardiovascular: Heart tones S1 S2 present Rhythm is regular. Respiratory: Airway is patent Respiratory effort is even, unlabored, Respiratory pattern is regular, symmetrical, Breath sounds are clear bilaterally. GI: No signs and/or symptoms were reported involving the gastrointestinal system. Abdomen is flat, non-distended, Bowel sounds present X 4 quads. Abd is soft and non tender X 4 quads. : No signs and/or symptoms were reported regarding the genitourinary system. EENT: No signs and/or symptoms were reported regarding the EENT system. Derm: Skin is pink, warm \\T\\ dry. Musculoskeletal: Range of motion: intact in all extremities. 07:30 Reassessment: Pt offered breakfast, pt denied. Pt requesting orange juice. Pt drank 220 aa5 cc of orange juice. . 07:44 Reassessment: Pt now resting in bed with eyes closed, respirations even and unlabored, aa5 skin is pink/warm/dry. Bed locked in low position, side rails x2. Sitter at bedside . 08:45 Reassessment: Pt remains resting with eyes closed, respirations even and unlabored, aa5 skin is pink/warm/dry. Pt awakens to verbal stimuli. Pt notified of need for IV insertion for potassium administration, pt verbalizes understanding and agrees to IV insertion. . 09:00 Reassessment: Patient is alert, oriented x 3, equal unlabored respirations, skin aa5 warm/dry/pink. Pt offered breakfast, pt refused. . 10:35 Reassessment: Pt resting in bed with eyes closed, respirations are even and unlabored, aa5 skin is pink/warm/dry. Pt easy to arouse to verbal stimuli. Bed remains locked in low position, side rails x 2. . 11:30 Reassessment: Pt resting in bed with eyes closed, respiration even and unlabored, skin aa5 is pink/warm/dry. 12:30 Reassessment: Patient is alert, oriented x 3, equal unlabored respirations, skin aa5 warm/dry/pink. Pt ate 50% of lunch, pt tolerated well. . 13:15 Reassessment: Pt currently resting in bed with eyes closed, respirations even and aa5 unlabored, skin is pink/warm/dry. Pt easy to awake to verbal stimuli . 14:00 Reassessment: Pt resting in bed with eyes closed, respirations even and unlabored, skin aa5 is pink/warm/dry. . 15:00 Reassessment: Pt resting in bed with eyes closed. Respirations even and unlabored, skin aa5 is pink/warm/dry. Pt easy to awake to verbal stimuli. Pt reports suicidal thoughts, pt states "I do want to be transferred because I know I need help". Pt states "I cut my wrist on my previous suicide attempt". Pt states "I used to take psych pills but I stopped about 6 months ago because I hate taking pills". Pt notified of wait time for transfer approval and notified that is normally a long wait time to be transferred, pt verbalizes understanding. Pt's sister at bedside. . 16:00 Reassessment: Pt remains resting in bed with eyes closed, respirations even and aa5 unlabored, skin is pink/warm/dry. . 17:00 Reassessment: Resting in bed with eyes closed, respirations are even and unlabored, aa5 skin warm/dry/pink. . 18:00 Reassessment: Pt remains resting in bed with eyes closed, respirations even and aa5 unlabored, skin is pink/warm/dry. 19:00 Reassessment: Patient appears in no apparent distress at this time. Patient and/or tl2 family updated on plan of care and expected duration. Pain level reassessed. Patient is alert, oriented x 3, equal unlabored respirations, skin warm/dry/pink. General: Appears in no apparent distress. comfortable, Behavior is calm, cooperative, appropriate for age. Pain: Denies pain. Neuro: Level of Consciousness is awake, alert, obeys commands, Oriented to person, place, time, situation. Cardiovascular: Rhythm is regular. Respiratory: Airway is patent Respiratory effort is even, unlabored, Respiratory pattern is regular, symmetrical. GI: No signs and/or symptoms were reported involving the gastrointestinal system. : No signs and/or symptoms were reported regarding the genitourinary system. Derm: Skin is pink, warm \\T\\ dry. 21:55 Reassessment: Patient appears in no apparent distress at this time. Patient and/or tl2 family updated on plan of care and expected duration. Pain level reassessed. Patient is alert, oriented x 3, equal unlabored respirations, skin warm/dry/pink. Pt resting, no questions or complaints at this time. Pt is cooperative. 08/22 00:00 Reassessment: Patient appears in no apparent distress at this time. Pt remains asleep, tl2 RR even and unlabored. 02:00 Reassessment: Patient appears in no apparent distress at this time. Pt remains asleep, tl2 RR even and unlabored. 04:00 Reassessment: Patient appears in no apparent distress at this time. tl2 07:05 Reassessment: Patient appears in no apparent distress at this time. Patient and/or hb family updated on plan of care and expected duration. Pain level reassessed. Patient is alert, oriented x 3, equal unlabored respirations, skin warm/dry/pink. Sitter at bedside. 08:00 Reassessment: Patient appears in no apparent distress at this time. No changes from hb previously documented assessment. Patient and/or family updated on plan of care and expected duration. Pain level reassessed. Patient is alert, oriented x 3, equal unlabored respirations, skin warm/dry/pink. Sitter remains at bedside. 09:00 General: Appears comfortable, Behavior is calm, cooperative. Pain: Denies pain. Neuro: aa5 Level of Consciousness is awake, alert, obeys commands, Oriented to person, place, time, situation. Cardiovascular: Heart tones S1 S2 present Rhythm is regular. Respiratory: Airway is patent Respiratory effort is even, unlabored, Respiratory pattern is regular, symmetrical, Breath sounds are clear bilaterally. GI: Abdomen is flat, non-distended, Bowel sounds present X 4 quads. Abd is soft and non tender X 4 quads. : No signs and/or symptoms were reported regarding the genitourinary system. EENT: No signs and/or symptoms were reported regarding the EENT system. Derm: Skin is pink, warm \\T\\ dry. Musculoskeletal: Range of motion: intact in all extremities. 09:00 Reassessment: Pt's care will be continued by me at this time. . aa5 10:00 Reassessment: Pt resting in bed with eyes closed, respirations are even and unlabored, aa5 skin is pink/warm/dry. . 11:00 Reassessment: Pt resting in bed with eyes closed, respirations are even and unlabored, aa5 skin is pink/warm/dry. . 11:15 Reassessment: Pt's care will be continued by Yanely Fields RN. aa5 11:16 Reassessment: Patient appears in no apparent distress at this time. Patient and/or family updated on plan of care and expected duration. Pain level reassessed. Patient is alert, oriented x 3, equal unlabored respirations, skin warm/dry/pink. Sitter remains at bedside. 12:00 Reassessment: Patient appears in no apparent distress at this time. No changes from hb previously documented assessment. Patient and/or family updated on plan of care and expected duration. Pain level reassessed. Patient is alert, oriented x 3, equal unlabored respirations, skin warm/dry/pink. Sitter remains at bedside. 13:00 Reassessment: Patient appears in no apparent distress at this time. No changes from hb previously documented assessment. Patient and/or family updated on plan of care and expected duration. Pain level reassessed. Patient is alert, oriented x 3, equal unlabored respirations, skin warm/dry/pink. Sitter remains at bedside. 14:00 Reassessment: Pt resting with eyes closed. Respirations even and unlabored. Skin is hb pink, warm, and dry. Sitter remains at bedside. 15:00 Reassessment: Patient appears in no apparent distress at this time. No changes from hb previously documented assessment. Patient and/or family updated on plan of care and expected duration. Pain level reassessed. 15:58 Reassessment: Patient appears in no apparent distress at this time. Patient and/or hb family updated on plan of care and expected duration. Pain level reassessed. Pt resting with eyes closed. Sitter remains at bedside. 17:30 Reassessment: pt has had no other outbursts or attempts to leave since 0640 on 08-21-17. iw Pt has been cooperative and requesting to be sent to psych facility for suicidal ideation, pt states that if he is left alone he will try to do something to harm himself because he starts thinking about his son who was killed. Pt has never been restrained by ER staff, pt was only in handcuffs when police escorted pt back to the ER on 08-21-17, once pt was uncuffed at 0720 on 08-21-17 he has been cooperative and willing to be transferred to psych facility, pt is apologetic about his behavior and states that he is normally very cooperative with authority figures. 18:30 Reassessment: Patient appears in no apparent distress at this time. No changes from hb previously documented assessment. Patient and/or family updated on plan of care and expected duration. Pain level reassessed. Patient is alert, oriented x 3, equal unlabored respirations, skin warm/dry/pink. 19:24 Reassessment: Patient appears in no apparent distress at this time. No changes from jd3 previously documented assessment. Patient and/or family updated on plan of care and expected duration. Pain level reassessed. Patient is alert, oriented x 3, equal unlabored respirations, skin warm/dry/pink. pt is cooperative, family at bedside, no distress noted at this time. 20:10 Reassessment: Patient appears in no apparent distress at this time. No changes from jd3 previously documented assessment. Patient and/or family updated on plan of care and expected duration. Pain level reassessed. Patient is alert, oriented x 3, equal unlabored respirations, skin warm/dry/pink. 20:21 Reassessment: pt asking for medication to aid with sleep, provider notified, no new jd3 orders at this time. 21:25 Reassessment: Patient appears in no apparent distress at this time. No changes from jd3 previously documented assessment. Patient and/or family updated on plan of care and expected duration. Pain level reassessed. Patient is alert, oriented x 3, equal unlabored respirations, skin warm/dry/pink. Patient denies pain at this time. 22:30 Reassessment: Patient appears in no apparent distress at this time. No changes from jd3 previously documented assessment. Patient and/or family updated on plan of care and expected duration. Pain level reassessed. Patient is alert, oriented x 3, equal unlabored respirations, skin warm/dry/pink. Patient denies pain at this time. 23:06 Reassessment: pt reported wanting to wait for the sleep until midnight. provider jd3 notified. 08/23 00:00 Reassessment: Patient appears in no apparent distress at this time. Patient and/or jd3 family updated on plan of care and expected duration. Pain level reassessed. Patient is alert, oriented x 3, equal unlabored respirations, skin warm/dry/pink. pt sleeping, eyes closed, even and unlabored respirations, sitter at bedside. no distress noted at this time. 01:00 Reassessment: Patient appears in no apparent distress at this time. No changes from jd3 previously documented assessment. Patient and/or family updated on plan of care and expected duration. Pain level reassessed. Patient is alert, oriented x 3, equal unlabored respirations, skin warm/dry/pink. 02:00 Reassessment: Patient appears in no apparent distress at this time. No changes from jd3 previously documented assessment. Patient and/or family updated on plan of care and expected duration. Pain level reassessed. Patient is alert, oriented x 3, equal unlabored respirations, skin warm/dry/pink. 03:00 Reassessment: Patient appears in no apparent distress at this time. No changes from jd3 previously documented assessment. Patient and/or family updated on plan of care and expected duration. Pain level reassessed. Patient is alert, oriented x 3, equal unlabored respirations, skin warm/dry/pink. 04:00 Reassessment: Patient appears in no apparent distress at this time. No changes from jd3 previously documented assessment. Patient and/or family updated on plan of care and expected duration. Pain level reassessed. Patient is alert, oriented x 3, equal unlabored respirations, skin warm/dry/pink. Patient denies pain at this time. 05:00 Reassessment: Patient appears in no apparent distress at this time. No changes from jd3 previously documented assessment. Patient and/or family updated on plan of care and expected duration. Pain level reassessed. Patient is alert, oriented x 3, equal unlabored respirations, skin warm/dry/pink. 06:00 Reassessment: Patient appears in no apparent distress at this time. No changes from jd3 previously documented assessment. Patient and/or family updated on plan of care and expected duration. Pain level reassessed. Patient is alert, oriented x 3, equal unlabored respirations, skin warm/dry/pink. 07:00 Reassessment: Patient appears in no apparent distress at this time. No changes from jd3 previously documented assessment. Patient and/or family updated on plan of care and expected duration. Pain level reassessed. Patient is alert, oriented x 3, equal unlabored respirations, skin warm/dry/pink. bedside report given to Prosper GROVE. 07:00 Reassessment: bedside report with LONG Anand. General: Appears in no apparent em distress. comfortable, Behavior is calm, cooperative. Cardiovascular: Capillary refill < 3 seconds Patient's skin is warm and dry. Respiratory: Airway is patent Respiratory effort is even, unlabored, Respiratory pattern is regular, symmetrical. Derm: Skin is intact, Skin is pink, warm \\T\\ dry. Musculoskeletal: Range of motion: intact in all extremities. 07:30 Reassessment: Patient appears in no apparent distress at this time. Patient and/or em family updated on plan of care and expected duration. Pain level reassessed. Patient is alert, oriented x 3, equal unlabored respirations, skin warm/dry/pink. reports, "feeling better and wants help," currently denies SI or HI. 08:41 Reassessment: report called to Hien Simmons RN at [facility], awaiting EMS em transportaion. 09:00 Reassessment: pt asked for wallet and shirt, security called and there is no evidence em of wallet or shirt in safe, [facility] contacted and they informed that wallet was transferred with pt, pt has not seen wallet since EMS transportation, reports one of the nurse threw away the shirt because it was torn up, charged nurse notified. 09:14 Reassessment: report given to EMS, will transport pt to facility. em Psych: 08/20 23:32 Subjective: Patient's mood is angry, irritable, Delusions are being chased by someone ak1 or something Hallucinations are visual, Having thoughts of suicide. Denies suicidal plan. Objective: Patient is cooperative, using poor eye contact, Speech is normal. Interventions: Removed personal items and placed in bag. Patient placed in hospital gown. Searched person for dangerous items. Suicide Risk Assessment: Sad Person Scale: Sex of patient: Male: Score 1 point. Age of patient: Score 0 point if patient falls outside of specified age parameters. Depression: Score 1 point if signs of depression are present. Previous Attempt: Score 1 point if patient has previously attempted suicide. Substance Abuse: Score 1 point if patient abuses alcohol or drugs. Rational Thinking: Score 1 point if patient is lacking rational thinking. Social Support: Score 1 point if social support is lacking and/or unavailable. Organized Plan: Score 0 if patient did not have an organized plan in place. Relationship: Score 1 point if patient is , , , or for a single male Chronic Sickness: Score 0 point if patient does not have a chronic illness, debilitating, or severe disorder. Safety Checks: Personal items have been removed. Door is open. Patient uses methamphetamines Last use was tonight. Commitment: Patient will be an involuntary commitment. Mental health deputy at bedside for [facility] warrant. 08/21 19:00 Safety Checks: Personal items have been removed. Door is open. Visitors are present. kk5 19:14 Safety Checks: Personal items have been removed. Door is open. Visitors are present. kk5 19:44 Safety Checks: Personal items have been removed. Door is open. Visitors are present. kk5 Additional family present bedside. Pt alert, talking. cooperative. 20:30 Safety Checks: Personal items have been removed. Door is open. Visitors are present. kk5 V/S wnl, pt denies auditory/visual disturbance of any kind. Denies GAO, CP, SOB. 21:57 Safety Checks: Personal items have been removed. Door is open. No visitors are present kk5 at this time. pt resting with eyes closed, respirations even and unlabored. 22:23 Safety Checks: Personal items have been removed. Door is open. No visitors are present kk5 at this time. 22:40 Safety Checks: Personal items have been removed. Door is open. kk5 23:34 Safety Checks: Personal items have been removed. Door is open. No visitors are present kk5 at this time. pt lying prone, snoring, no apparent distress noted. 23:59 Safety Checks: Personal items have been removed. Door is open. kk5 08/22 00:10 Safety Checks: Personal items have been removed. Door is open. No visitors are present kk5 at this time. 01:34 Safety Checks: Personal items have been removed. Door is open. kk5 02:09 Safety Checks: Personal items have been removed. Door is open. kk5 02:28 Safety Checks: Personal items have been removed. Door is open. kk5 03:03 Safety Checks: Personal items have been removed. Door is open. kk5 03:36 Safety Checks: Personal items have been removed. Door is open. pt resting with eyes kk5 closed, respirations even and unlabored. 03:55 Safety Checks: Personal items have been removed. Door is open. kk5 04:34 Safety Checks: Personal items have been removed. Door is open. kk5 04:55 Safety Checks: Personal items have been removed. Door is open. kk5 05:18 Safety Checks: Personal items have been removed. Door is open. kk5 05:33 Safety Checks: Personal items have been removed. Door is open. kk5 05:45 Safety Checks: Personal items have been removed. Door is open. kk5 06:09 Safety Checks: Personal items have been removed. Door is open. Pt alert and oriented. kk5 Cooperative. 06:27 Safety Checks: Personal items have been removed. Door is open. kk5 06:58 Safety Checks: Personal items have been removed. Door is open. Pt resting, respirations kk5 even and unlabored. Vital Signs: 08/20 23:30 BP 139 / 99; Pulse 108; Resp 18; Temp 98.1; Pulse Ox 100% on R/A; Weight 68.04 kg (R); ak1 Height 5 ft. 8 in. (172.72 cm) (R); Pain 0/10; 08/21 00:12 BP 128 / 86; Pulse 86; Resp 18; Pulse Ox 100% on R/A; Pain 0/10; ak1 01:40 BP 131 / 83; Pulse 100; Resp 16; Pulse Ox 99% on R/A; Pain 0/10; ak1 02:15 BP 125 / 77; Pulse 100; Resp 16; Temp 98.2; Pulse Ox 100% on R/A; Pain 0/10; ak1 02:57 BP 140 / 82; Pulse 110; Resp 18; Pulse Ox 99% on R/A; Pain 0/10; ak1 03:34 BP 116 / 83; Pulse 100; Resp 18; Pulse Ox 100% on R/A; Pain 0/10; ak1 07:30 BP 118 / 90; Pulse 120; Resp 20 S; Temp 98.0(O); Pulse Ox 98% on R/A; Pain 0/10; aa5 09:00 BP 114 / 81; Pulse 85; Resp 16 S; Pulse Ox 100% on R/A; aa5 11:00 BP 110 / 74; Pulse 80; Resp 18 S; Pulse Ox 100% on R/A; Pain 0/10; aa5 13:20 BP 91 / 60; Pulse 78; Resp 16 S; Temp 98.3(O); Pulse Ox 100% on R/A; Pain 0/10; aa5 14:53 BP 95 / 59; Pulse 73; Resp 18; Pulse Ox 100% on R/A; ag 15:15 BP 110 / 72; Pulse 78; Resp 16 S; Pulse Ox 100% on R/A; aa5 15:30 BP 106 / 68; Pulse 74; Resp 16 S; Pulse Ox 100% on R/A; aa5 15:45 BP 105 / 68; Pulse 73; Resp 16 S; Pulse Ox 100% on R/A; aa5 16:00 BP 102 / 70; Pulse 74; Resp 16 S; Pulse Ox 100% on R/A; aa5 16:23 BP 108 / 68; Pulse 72; Resp 18 S; Temp 98.0(TE); Pulse Ox 100% on R/A; Pain 0/10; aa5 18:48 BP 108 / 71; Pulse 88; Resp 17; Pulse Ox 100% on R/A; Pain 0/10; tl1 19:20 BP 107 / 73; Pulse 84; Resp 12; Pulse Ox 100% ; kk5 20:03 BP 109 / 69; Pulse 82; Resp 12; Pulse Ox 100% ; kk5 08/22 02:08 BP 98 / 57; Pulse 70; Resp 12; Temp 97.8; Pulse Ox 100% on R/A; kk5 06:07 BP 93 / 57; Pulse 69; Resp 12; Temp 97.8; Pulse Ox 99% on R/A; Pain 0/10; kk5 07:14 BP 91 / 62; Pulse 80; Resp 12; Temp 97.6; Pulse Ox 98% on R/A; Pain 0/10; em1 09:45 BP 98 / 70; Pulse 60; Resp 16 S; Temp 98.7(O); Pulse Ox 100% on R/A; Pain 0/10; aa5 12:19 BP 98 / 58; Pulse 68; Resp 16; Pulse Ox 100% ; hb 16:00 BP 106 / 66; Pulse 70; Resp 15; Pulse Ox 100% on R/A; Pain 0/10; hb 20:00 BP 99 / 60; Pulse 69; Resp 19 S; Temp 98.0(O); Pulse Ox 97% on R/A; Pain 0/10; jd3 08/23 00:00 BP 102 / 69; Pulse 65; Resp 18; Temp 97.9; Pulse Ox 98% ; Pain 0/10; td 04:00 BP 91 / 62; Pulse 71; Resp 18; Temp 98.1; Pulse Ox 98% ; Pain 0/10; td 08:10 BP 98 / 59; Pulse 67; Resp 18; Temp 97.8(TE); Pulse Ox 100% on R/A; Pain 0/10; em 08/20 23:30 Body Mass Index 22.81 (68.04 kg, 172.72 cm) ak1 08/21 13:20 Dr. Escalona notified of decreased BP aa5 ED Course: 08/20 23:24 Patient arrived in ED. ak1 23:25 Bonifacio Nieves MD is Attending Physician. rn 23:28 Triage completed. ak1 23:30 Safety Checks: Personal items have been removed. The door is open or patient has been ak1 placed in a hallway bed/chair. Sitter present at this time. 23:30 Arm band placed on Patient placed in an exam room, on a stretcher, Patient notified of ak1 wait time. 23:30 Inserted saline lock: 20 gauge in right forearm, using aseptic technique. Blood lp1 collected. 23:34 Patient has correct armband on for positive identification. Placed in gown. Bed in low ak1 position. Call light in reach. Side rails up X2. Pulse ox on. NIBP on. 23:45 Safety Checks: Personal items have been removed. The door is open or patient has been ak1 placed in a hallway bed/chair. Sitter present at this time. 08/21 00:00 Safety Checks: Personal items have been removed. The door is open or patient has been ak1 placed in a hallway bed/chair. Sitter present at this time. 00:11 Hoda Law, RN is Primary Nurse. ak1 00:15 Safety Checks: Personal items have been removed. The door is open or patient has been ak1 placed in a hallway bed/chair. A family member and/or friend is present and encouraged to stay. pt sister at bedside. Sitter present at this time. 00:30 Safety Checks: Personal items have been removed. The door is open or patient has been ak1 placed in a hallway bed/chair. A family member and/or friend is present and encouraged to stay. Sitter present at this time. 00:36 Notified ED physician of a critical lab result(s). potassium of 2.7 Dr. Nieves notified. bb 00:45 Safety Checks: Personal items have been removed. The door is open or patient has been ak1 placed in a hallway bed/chair. A family member and/or friend is present and encouraged to stay. Sitter present at this time. 01:00 Safety Checks: Personal items have been removed. The door is open or patient has been ak1 placed in a hallway bed/chair. A family member and/or friend is present and encouraged to stay. Sitter present at this time. 01:15 Safety Checks: Personal items have been removed. The door is open or patient has been ak1 placed in a hallway bed/chair. A family member and/or friend is present and encouraged to stay. Sitter present at this time. 01:26 No provider procedures requiring assistance completed. ak1 01:30 Safety Checks: Personal items have been removed. The door is open or patient has been ak1 placed in a hallway bed/chair. A family member and/or friend is present and encouraged to stay. Sitter present at this time. 01:45 Safety Checks: Personal items have been removed. The door is open or patient has been ak1 placed in a hallway bed/chair. A family member and/or friend is present and encouraged to stay. Sitter present at this time. 02:00 Safety Checks: Personal items have been removed. The door is open or patient has been ak1 placed in a hallway bed/chair. A family member and/or friend is present and encouraged to stay. Sitter present at this time. 02:15 Safety Checks: Personal items have been removed. The door is open or patient has been ak1 placed in a hallway bed/chair. There are no family/friend visitors at this time Sitter present at this time. 02:30 Safety Checks: Personal items have been removed. The door is open or patient has been ak1 placed in a hallway bed/chair. There are no family/friend visitors at this time Sitter present at this time. 02:45 Safety Checks: Personal items have been removed. The door is open or patient has been ak1 placed in a hallway bed/chair. There are no family/friend visitors at this time Sitter present at this time. 03:00 Safety Checks: Personal items have been removed. The door is open or patient has been ak1 placed in a hallway bed/chair. There are no family/friend visitors at this time Sitter present at this time. 03:15 Safety Checks: Personal items have been removed. The door is open or patient has been ak1 placed in a hallway bed/chair. There are no family/friend visitors at this time Sitter present at this time. 03:30 Safety Checks: Personal items have been removed. The door is open or patient has been ak1 placed in a hallway bed/chair. There are no family/friend visitors at this time Sitter present at this time. 03:45 Safety Checks: Personal items have been removed. The door is open or patient has been ak1 placed in a hallway bed/chair. There are no family/friend visitors at this time Sitter present at this time. 04:00 Safety Checks: Personal items have been removed. The door is open or patient has been ak1 placed in a hallway bed/chair. There are no family/friend visitors at this time Sitter present at this time. 04:15 Safety Checks: Personal items have been removed. The door is open or patient has been ak1 placed in a hallway bed/chair. There are no family/friend visitors at this time Sitter present at this time. 04:30 Safety Checks: Personal items have been removed. The door is open or patient has been ak1 placed in a hallway bed/chair. There are no family/friend visitors at this time Sitter present at this time. 04:45 Safety Checks: Personal items have been removed. The door is open or patient has been ak1 placed in a hallway bed/chair. There are no family/friend visitors at this time Sitter present at this time. 05:00 Safety Checks: Personal items have been removed. The door is open or patient has been ak1 placed in a hallway bed/chair. There are no family/friend visitors at this time Sitter present at this time. 05:15 Safety Checks: Personal items have been removed. The door is open or patient has been ak1 placed in a hallway bed/chair. There are no family/friend visitors at this time Sitter present at this time. 05:30 Safety Checks: Personal items have been removed. The door is open or patient has been ak1 placed in a hallway bed/chair. Sitter present at this time. 05:45 Safety Checks: Personal items have been removed. The door is open or patient has been ak1 placed in a hallway bed/chair. There are no family/friend visitors at this time Sitter present at this time. 06:03 pt removed his own IV. ak1 06:40 Primary Nurse role handed off by Hoda Law RN ak1 07:00 Sitter at bedside. ag 07:30 Safety Checks: The door is open or patient has been placed in a hallway bed/chair. aa5 There are no family/friend visitors at this time Sitter present at this time. 07:32 Radha Del Castillo, LONG is Primary Nurse. aa5 07:32 Attending Physician role handed off by Bonifacio Nieves MD shine 07:32 Agustin Escalona MD is Attending Physician. shine 07:45 Safety Checks: The door is open or patient has been placed in a hallway bed/chair. aa5 There are no family/friend visitors at this time Sitter present at this time. 08:00 Safety Checks: Personal items have been removed. The door is open or patient has been ph placed in a hallway bed/chair. There are no family/friend visitors at this time Sitter present at this time. 08:15 Safety Checks: Personal items have been removed. The door is open or patient has been ph placed in a hallway bed/chair. There are no family/friend visitors at this time Sitter present at this time. 08:30 Safety Checks: Personal items have been removed. The door is open or patient has been ph placed in a hallway bed/chair. There are no family/friend visitors at this time Sitter present at this time. 08:45 Safety Checks: Personal items have been removed. The door is open or patient has been ph placed in a hallway bed/chair. There are no family/friend visitors at this time Sitter present at this time. 08:50 Inserted saline lock: 18 gauge in right antecubital area, using aseptic technique. aa5 09:00 Safety Checks: Personal items have been removed. The door is open or patient has been ph placed in a hallway bed/chair. There are no family/friend visitors at this time Sitter present at this time. 09:15 Safety Checks: Personal items have been removed. The door is open or patient has been ph placed in a hallway bed/chair. There are no family/friend visitors at this time Sitter present at this time. 09:30 Safety Checks: Personal items have been removed. The door is open or patient has been ph placed in a hallway bed/chair. There are no family/friend visitors at this time Sitter present at this time. 09:45 Safety Checks: The door is open or patient has been placed in a hallway bed/chair. aa5 There are no family/friend visitors at this time Sitter present at this time. 09:45 Safety checks: Items removed: yes. Door open/sign placed on door: yes. Family/friend ag present: no. 10:00 Safety Checks: The door is open or patient has been placed in a hallway bed/chair. aa5 There are no family/friend visitors at this time Sitter present at this time. 10:00 Safety checks: Items removed: yes. Door open/sign placed on door: yes. Family/friend ag present: no. 10:00 Sitter at bedside. ag 10:15 Safety Checks: The door is open or patient has been placed in a hallway bed/chair. aa5 There are no family/friend visitors at this time Sitter present at this time. 10:30 Safety Checks: The door is open or patient has been placed in a hallway bed/chair. aa5 There are no family/friend visitors at this time Sitter present at this time. 10:45 Safety checks: Items removed: yes. Door open/sign placed on door: yes. Family/friend ag present: yes. Sitter at bedside. 11:00 Safety checks: Items removed: yes. Door open/sign placed on door: yes. Family/friend ag present: yes. Sitter at bedside. 11:18 Safety checks: Items removed: yes. Door open/sign placed on door: yes. Family/friend ag present: yes. Sitter at bedside. 11:30 Safety checks: Items removed: yes. Door open/sign placed on door: yes. Family/friend ag present: yes. 11:30 Sitter at bedside. ag 11:45 Safety checks: Items removed: yes. Safety checks: Door open/sign placed on door: yes. ag Family/friend present: yes. 12:00 Safety checks: Items removed: yes. Door open/sign placed on door: yes. Family/friend ag present: yes. 12:15 Safety checks: Items removed: yes. Door open/sign placed on door: yes. Family/friend ag present: yes. 12:30 Safety checks: Items removed: yes. Door open/sign placed on door: yes. Family/friend ag present: yes. 12:45 Safety checks: Items removed: yes. Door open/sign placed on door: yes. Family/friend ag present: yes. 13:15 Safety checks: Items removed: yes. Door open/sign placed on door: yes. Family/friend ag present: no. 13:30 Safety checks: Items removed: yes. Door open/sign placed on door: yes. Family/friend ag present: no. 13:45 Safety checks: Items removed: yes. Door open/sign placed on door: yes. Family/friend ag present: yes. 14:00 Safety checks: Items removed: yes. Door open/sign placed on door: yes. Family/friend ag present: yes. 14:15 Safety checks: Items removed: yes. Door open/sign placed on door: yes. Family/friend ag present: yes. 14:15 Sitter at bedside. ag 14:30 Safety checks: Items removed: yes. Door open/sign placed on door: yes. Family/friend ag present: yes. 14:45 Safety checks: Items removed: yes. Door open/sign placed on door: yes. Family/friend ag present: yes. 15:00 Safety checks: Items removed: yes. Door open/sign placed on door: yes. Family/friend ag present: yes. 15:15 Safety checks: Items removed: yes. Door open/sign placed on door: yes. Family/friend ag present: yes. 15:30 Safety checks: Items removed: yes. Door open/sign placed on door: yes. Family/friend ag present: no. 15:45 Safety checks: Items removed: yes. Door open/sign placed on door: yes. Family/friend ag present: no. 16:00 Safety checks: Items removed: yes. Door open/sign placed on door: yes. Family/friend ag present: no. 16:15 Safety checks: Items removed: yes. Door open/sign placed on door: yes. Family/friend ag present: no. 16:15 Sitter at bedside. ag 16:30 Safety checks: Items removed: yes. Door open/sign placed on door: yes. Family/friend ag present: no. 16:45 Safety checks: Items removed: yes. Door open/sign placed on door: yes. Family/friend ag present: no. 17:00 Safety checks: Items removed: yes. Door open/sign placed on door: yes. Family/friend ag present: yes. 17:16 Safety checks: Items removed: yes. Door open/sign placed on door: yes. Family/friend ag present: no. 17:30 Safety checks: Items removed: yes. Door open/sign placed on door: yes. Family/friend ag present: no. 17:45 Safety checks: Items removed: yes. Door open/sign placed on door: yes. Family/friend ag present: no. 18:00 Safety checks: Items removed: yes. Door open/sign placed on door: yes. Family/friend ag present: no. 18:15 Safety checks: Items removed: yes. Door open/sign placed on door: yes. Family/friend ag present: no. 18:33 Safety checks: Items removed: yes. Door open/sign placed on door: yes. Family/friend ag present: no. 18:45 Safety checks: Items removed: yes. Door open/sign placed on door: yes. Family/friend mw2 present: no. 19:00 Patient has correct armband on for positive identification. kk5 19:00 Safety checks: Items removed: yes. Door open/sign placed on door: yes. Family/friend mw2 present: no. 19:00 Report given to LONG Aguilera. aa5 19:15 Safety checks: Items removed: yes. Door open/sign placed on door: yes. Family/friend mw2 present: no. 19:30 Safety checks: Items removed: yes. Door open/sign placed on door: yes. Family/friend mw2 present: no. 19:45 Safety checks: Items removed: yes. Door open/sign placed on door: yes. Family/friend mw2 present: no. 20:00 Safety checks: Items removed: yes. Door open/sign placed on door: yes. Family/friend mw2 present: no. 20:15 Safety checks: Items removed: yes. Door open/sign placed on door: yes. Family/friend mw2 present: no. 20:30 Safety checks: Items removed: yes. Door open/sign placed on door: yes. Family/friend mw2 present: no. 20:45 Safety checks: Items removed: yes. Door open/sign placed on door: yes. Family/friend mw2 present: no. 21:00 Safety checks: Items removed: yes. Door open/sign placed on door: yes. Family/friend mw2 present: no. 21:15 Safety checks: Items removed: yes. Door open/sign placed on door: yes. Family/friend mw2 present: no. 21:30 Safety checks: Items removed: yes. Door open/sign placed on door: yes. Family/friend mw2 present: no. 21:45 Safety checks: Items removed: yes. Door open/sign placed on door: yes. Family/friend mw2 present: no. 22:00 Safety checks: Items removed: yes. Door open/sign placed on door: yes. Family/friend mw2 present: no. 22:11 Primary Nurse role handed off by Radha Del Castillo RN rg2 22:15 Safety checks: Items removed: yes. Door open/sign placed on door: yes. Family/friend mw2 present: no. 22:30 Safety checks: Items removed: yes. Door open/sign placed on door: yes. Family/friend mw2 present: no. 22:45 Safety checks: Items removed: yes. Door open/sign placed on door: yes. Family/friend mw2 present: no. 23:00 Safety checks: Items removed: yes. Door open/sign placed on door: yes. Family/friend mw2 present: no. Safety checks: Items removed: yes. Door open/sign placed on door: yes. Family/friend present: no. 23:17 Sitter at bedside. kk5 08/22 00:31 No apparent distress. Appears to be sleeping. Safety Checks: Personal items have been kk5 removed. The door is open or patient has been placed in a hallway bed/chair. There are no family/friend visitors at this time. 00:59 Appears to be sleeping. Safety Checks: Personal items have been removed. The door is kk5 open or patient has been placed in a hallway bed/chair. 01:18 Resting quietly. Safety Checks: The door is open or patient has been placed in a kk5 hallway bed/chair. 01:47 Resting quietly. Safety Checks: The door is open or patient has been placed in a kk5 hallway bed/chair. 04:56 Resting quietly. Safety Checks: Sitter present at this time. kk5 06:46 Safety Checks: Personal items have been removed. The door is open or patient has been kk5 placed in a hallway bed/chair. Sitter present at this time. 07:09 Safety checks: Items removed: yes. Door open/sign placed on door: yes. Family/friend em1 present: no. Sitter at bedside. 07:10 Attending Physician role handed off by Agustin Escalona MD kdr 07:10 Adrián Jeo MD is Attending Physician. kdr 07:15 Safety checks:. Spoke with Scarlet at [facility] and they have no beds. Linda at [facility] no ag beds he is on a waiting list. 07:17 Maryanne with [facility] has no beds. Juliann Macias has no beds still on waiting list. ag 07:24 No beds at [facility]. ag 07:28 Cele with [facility] clinical's are still under review. ag 07:31 Patricia with [facility] beds are still at capacity. ag 07:31 Pat at [facility] no beds available. ag 07:31 Nga with [facility] still waiting on beds. ag 07:46 Aditi no beds available at [facility]. Nayana with [facility] no under review ag no beds. 07:46 Mercy with [facility] will call back with information. ag 09:00 Safety Checks: The door is open or patient has been placed in a hallway bed/chair. aa5 There are no family/friend visitors at this time Sitter present at this time. 09:15 Safety Checks: The door is open or patient has been placed in a hallway bed/chair. aa5 There are no family/friend visitors at this time Sitter present at this time. 09:30 Safety Checks: The door is open or patient has been placed in a hallway bed/chair. aa5 There are no family/friend visitors at this time Sitter present at this time. 09:32 Radha Del Castillo RN is Primary Nurse. aa 09:45 Safety Checks: The door is open or patient has been placed in a hallway bed/chair. aa5 There are no family/friend visitors at this time Sitter present at this time. 10:00 Safety Checks: The door is open or patient has been placed in a hallway bed/chair. aa5 There are no family/friend visitors at this time Sitter present at this time. 10:15 Safety Checks: The door is open or patient has been placed in a hallway bed/chair. A aa5 family member and/or friend is present and encouraged to stay. Sitter present at this time. 10:30 Safety Checks: The door is open or patient has been placed in a hallway bed/chair. A aa5 family member and/or friend is present and encouraged to stay. Sitter present at this time. 10:30 Safety checks: Items removed: yes. Door open/sign placed on door: yes. Family/friend dh3 present: no. 10:45 Safety Checks: The door is open or patient has been placed in a hallway bed/chair. A aa5 family member and/or friend is present and encouraged to stay. Sitter present at this time. 10:45 Safety checks: Items removed: yes. Door open/sign placed on door: yes. Family/friend dh3 present: no. 11:00 Safety Checks: The door is open or patient has been placed in a hallway bed/chair. aa5 There are no family/friend visitors at this time Sitter present at this time. 11:00 Safety checks: Items removed: yes. Door open/sign placed on door: yes. Family/friend dh3 present: no. 11:15 Safety Checks: The door is open or patient has been placed in a hallway bed/chair. aa5 There are no family/friend visitors at this time Sitter present at this time. 11:15 Safety checks: Items removed: yes. Door open/sign placed on door: yes. Family/friend dh3 present: yes. Family/friends encouraged to stay with patient. 11:30 Safety checks: Items removed: yes. Door open/sign placed on door: yes. Family/friend dh3 present: yes. Family/friends encouraged to stay with patient. 11:45 Safety checks: Items removed: yes. Door open/sign placed on door: yes. Family/friend dh3 present: yes. Family/friends encouraged to stay with patient. 12:00 Safety checks: Items removed: yes. Door open/sign placed on door: yes. Family/friend dh3 present: yes. Family/friends encouraged to stay with patient. 12:15 Safety checks: Door open/sign placed on door: yes. Family/friend present: yes. dh3 Family/friends encouraged to stay with patient. 12:30 Safety checks: Items removed: yes. Door open/sign placed on door: yes. Family/friend dh3 present: yes. Family/friends encouraged to stay with patient. 12:45 Safety checks: Items removed: yes. Door open/sign placed on door: yes. Family/friend dh3 present: yes. Family/friends encouraged to stay with patient. 13:00 Safety checks: Items removed: yes. Door open/sign placed on door: yes. Family/friend dh3 present: yes. Family/friends encouraged to stay with patient. 13:15 Safety checks: Items removed: yes. Door open/sign placed on door: yes. Family/friend dh3 present: yes. Family/friends encouraged to stay with patient. 13:30 Safety checks: Items removed: yes. Door open/sign placed on door: yes. Family/friend dh3 present: yes. Family/friends encouraged to stay with patient. 13:45 Safety checks: Items removed: yes. Door open/sign placed on door: yes. Family/friend wj1 present: no. 14:00 Safety checks: Items removed: yes. Door open/sign placed on door: yes. Family/friend wj1 present: no. 14:15 Safety checks: Items removed: yes. Door open/sign placed on door: yes. Family/friend wj1 present: no. 14:30 Safety checks: Items removed: yes. Door open/sign placed on door: yes. Family/friend wj1 present: no. 14:45 Safety checks: Items removed: yes. Door open/sign placed on door: yes. Family/friend wj1 present: no. 15:00 Safety checks: Items removed: yes. Door open/sign placed on door: yes. Family/friend wj1 present: no. 15:15 Safety checks: Items removed: yes. Door open/sign placed on door: yes. Family/friend wj1 present: no. 15:30 Safety checks: Items removed: yes. Door open/sign placed on door: yes. Family/friend wj1 present: no. Safety checks: Items removed: yes. Door open/sign placed on door: yes. Family/friend present: no. 15:45 Safety checks: Items removed: yes. Door open/sign placed on door: yes. Family/friend wj1 present: no. Safety checks: Items removed: yes. Door open/sign placed on door: yes. 16:00 Safety checks: Items removed: yes. Door open/sign placed on door: yes. Family/friend wj1 present: no. 16:15 Safety checks: Items removed: yes. Door open/sign placed on door: yes. Family/friend wj1 present: no. 16:30 Safety checks: Items removed: yes. Door open/sign placed on door: yes. Family/friend wj1 present: yes. Family/friends encouraged to stay with patient. 16:45 Safety checks: Items removed: yes. Door open/sign placed on door: yes. Family/friend wj1 present: yes. Family/friends encouraged to stay with patient. 17:00 Safety checks: Items removed: yes. Door open/sign placed on door: yes. Family/friend wj1 present: yes. Family/friends encouraged to stay with patient. 17:15 Safety checks: Items removed: yes. Door open/sign placed on door: yes. Family/friend wj1 present: yes. Family/friends encouraged to stay with patient. 17:30 Safety checks: Items removed: yes. Door open/sign placed on door: yes. Family/friend wj1 present: yes. Family/friends encouraged to stay with patient. 17:45 Safety checks: Items removed: yes. Door open/sign placed on door: yes. Family/friend wj1 present: yes. 18:00 Safety checks: Items removed: yes. Door open/sign placed on door: yes. Family/friend wj1 present: yes. Family/friends encouraged to stay with patient. 18:15 Safety checks: Items removed: yes. Door open/sign placed on door: yes. Family/friend wj1 present: yes. 18:30 Safety checks: Items removed: yes. Door open/sign placed on door: yes. Family/friend wj1 present: yes. 18:45 Safety checks: Items removed: yes. Door open/sign placed on door: yes. Family/friend wj1 present: yes. Family/friends encouraged to stay with patient. 19:00 Safety Checks: Personal items have been removed. The door is open or patient has been jd3 placed in a hallway bed/chair. A family member and/or friend is present and encouraged to stay. Sitter present at this time. 19:05 Primary Nurse role handed off by Radha Del Castillo RN jd3 19:05 Kt Murphy RN is Primary Nurse. jd3 19:15 Safety Checks: Personal items have been removed. The door is open or patient has been jd3 placed in a hallway bed/chair. A family member and/or friend is present and encouraged to stay. Sitter present at this time. 19:30 Safety Checks: Personal items have been removed. The door is open or patient has been jd3 placed in a hallway bed/chair. A family member and/or friend is present and encouraged to stay. Sitter present at this time. 19:45 Safety Checks: Personal items have been removed. The door is open or patient has been jd3 placed in a hallway bed/chair. A family member and/or friend is present and encouraged to stay. Sitter present at this time. 20:00 Safety Checks: Personal items have been removed. The door is open or patient has been jd3 placed in a hallway bed/chair. A family member and/or friend is present and encouraged to stay. Sitter present at this time. 20:15 Safety Checks: Personal items have been removed. The door is open or patient has been jd3 placed in a hallway bed/chair. There are no family/friend visitors at this time Sitter present at this time. 20:30 Safety Checks: Personal items have been removed. The door is open or patient has been jd3 placed in a hallway bed/chair. There are no family/friend visitors at this time Sitter present at this time. 20:45 Safety Checks: Personal items have been removed. The door is open or patient has been jd3 placed in a hallway bed/chair. There are no family/friend visitors at this time Sitter present at this time. 21:00 Safety Checks: Personal items have been removed. The door is open or patient has been jd3 placed in a hallway bed/chair. There are no family/friend visitors at this time Sitter present at this time. 21:15 Safety Checks: Personal items have been removed. The door is open or patient has been jd3 placed in a hallway bed/chair. There are no family/friend visitors at this time Sitter present at this time. 21:30 Safety Checks: Personal items have been removed. The door is open or patient has been jd3 placed in a hallway bed/chair. There are no family/friend visitors at this time Sitter present at this time. 21:45 Safety Checks: Personal items have been removed. The door is open or patient has been jd3 placed in a hallway bed/chair. There are no family/friend visitors at this time Sitter present at this time. 22:00 Safety Checks: Personal items have been removed. The door is open or patient has been jd3 placed in a hallway bed/chair. There are no family/friend visitors at this time Sitter present at this time. 22:15 Safety Checks: Personal items have been removed. The door is open or patient has been jd3 placed in a hallway bed/chair. There are no family/friend visitors at this time Sitter present at this time. 22:30 Safety Checks: Personal items have been removed. The door is open or patient has been jd3 placed in a hallway bed/chair. There are no family/friend visitors at this time Sitter present at this time. 22:45 Safety Checks: Personal items have been removed. The door is open or patient has been jd3 placed in a hallway bed/chair. There are no family/friend visitors at this time Sitter present at this time. 23:00 Safety Checks: Personal items have been removed. The door is open or patient has been jd3 placed in a hallway bed/chair. There are no family/friend visitors at this time Sitter present at this time. 23:15 Safety Checks: Sitter present at this time. safety checks being done by sitter at this jd3 time. 23:15 Safety checks: Items removed: yes. Door open/sign placed on door: yes. Family/friend td present: no. 23:30 Safety checks: Items removed: yes. Door open/sign placed on door: yes. Family/friend td present: no. 23:45 Safety checks: Items removed: yes. Door open/sign placed on door: yes. Family/friend td present: no. 08/23 00:00 Safety checks: Items removed: yes. Door open/sign placed on door: yes. Family/friend td present: no. 00:15 Safety checks: Items removed: yes. Door open/sign placed on door: yes. Family/friend td present: no. 00:30 Safety checks: Items removed: yes. Door open/sign placed on door: yes. Family/friend td present: no. 00:45 Safety checks: Items removed: yes. Door open/sign placed on door: yes. Family/friend td present: no. 01:00 Safety checks: Items removed: yes. Door open/sign placed on door: yes. Family/friend td present: no. 01:15 Safety checks: Items removed: yes. Door open/sign placed on door: yes. Family/friend td present: no. 01:30 Safety checks: Items removed: yes. Door open/sign placed on door: yes. Family/friend td present: no. 01:45 Safety checks: Items removed: yes. Door open/sign placed on door: yes. Family/friend td present: no. 02:00 Safety checks: Items removed: yes. Door open/sign placed on door: yes. Family/friend td present: no. 02:15 Safety checks: Items removed: yes. Door open/sign placed on door: yes. Family/friend td present: no. 02:30 Safety checks: Items removed: yes. Door open/sign placed on door: yes. Family/friend td present: no. 03:00 Safety checks: Items removed: yes. Door open/sign placed on door: yes. Family/friend td present: no. 03:15 Safety checks: Items removed: yes. Door open/sign placed on door: yes. Family/friend td present: no. 03:30 Safety checks: Items removed: yes. Door open/sign placed on door: yes. Family/friend td present: no. 03:45 Safety checks: Items removed: yes. Door open/sign placed on door: yes. Family/friend td present: no. 04:00 Safety checks: Items removed: yes. Door open/sign placed on door: yes. Family/friend td present: no. 04:15 Safety checks: Items removed: yes. Door open/sign placed on door: yes. Family/friend td present: no. 04:30 Safety checks: Items removed: yes. Door open/sign placed on door: yes. Family/friend td present: no. 04:45 Safety checks: Items removed: yes. Door open/sign placed on door: yes. Family/friend td present: no. 05:00 Safety checks: Items removed: yes. Door open/sign placed on door: yes. Family/friend td present: no. 05:15 Safety checks: Items removed: yes. Door open/sign placed on door: yes. Family/friend td present: no. 05:30 Safety checks: Items removed: yes. Door open/sign placed on door: yes. Family/friend td present: no. 05:45 Safety checks: Items removed: yes. Door open/sign placed on door: yes. Family/friend td present: no. 06:00 Safety checks: Items removed: yes. Door open/sign placed on door: yes. Family/friend td present: no. 06:15 Safety checks: Items removed: yes. Door open/sign placed on door: yes. Family/friend td present: no. 06:30 Safety checks: Items removed: yes. Door open/sign placed on door: yes. Family/friend td present: no. 06:45 Safety checks: Items removed: yes. Door open/sign placed on door: yes. Family/friend td present: no. 07:00 Safety checks: Items removed: yes. Door open/sign placed on door: yes. Family/friend wj1 present: no. 07:15 Safety checks: Items removed: yes. Door open/sign placed on door: yes. Family/friend wj1 present: no. 07:30 Safety checks: Items removed: yes. Door open/sign placed on door: yes. Family/friend wj1 present: no. 07:45 Safety checks: Items removed: yes. Door open/sign placed on door: yes. Family/friend wj1 present: no. 08:00 Safety checks: Items removed: yes. Door open/sign placed on door: yes. Family/friend wj1 present: no. 08:15 Safety checks: Items removed: yes. Door open/sign placed on door: yes. wj1 08:30 Safety checks: Items removed: yes. Door open/sign placed on door: yes. Family/friend wj1 present: no. 08:45 Safety checks: Items removed: yes. Door open/sign placed on door: yes. Family/friend wj1 present: yes. Family/friends encouraged to stay with patient. 09:00 Safety checks: Items removed: yes. Door open/sign placed on door: yes. Family/friend wj1 present: yes. Family/friends encouraged to stay with patient. 09:15 Safety checks: Items removed: yes. Door open/sign placed on door: yes. Family/friend wj1 present: Other: patient is being transferred. Administered Medications: 08/20 23:43 Drug: NS 0.9% 1000 ml Route: IV; Rate: 1000 ml; Site: right forearm; lp1 08/21 07:08 Follow up: IV Status: Completed infusion ak1 08/20 23:43 Drug: Ativan 1 mg Route: IVP; Site: right forearm; lp1 08/21 01:02 Follow up: Response: No adverse reaction; Marked relief of symptoms lp1 01:08 Drug: Potassium Chloride 40 mEq Route: PO; lp1 03:56 Follow up: Response: No adverse reaction ak1 03:56 Not Given (Patient Refused; pt became rude, threatend nurse if she gave medication): ak1 Ativan 1 mg IVP once 06:47 Drug: Ativan 2 mg Route: IM; Site: right deltoid; bb 07:20 Follow up: Response: No adverse reaction; Marked relief of symptoms aa5 08:55 Drug: Potassium Effervescent Tablet 50 mEq Route: PO; aa5 11:00 Follow up: Response: No adverse reaction aa5 08:55 Drug: Potassium Chloride 20 mEq Route: IV; Rate: per protocol; Site: right antecubital; aa5 11:00 Follow up: Response: No adverse reaction; IV Status: Completed infusion aa5 08:55 Drug: NS 0.9% with KCl 20 mEq/L 1000 ml Route: IV; Rate: 125 ml/hr; Site: right aa5 antecubital; 11:00 Follow up: IV Status: Infusion continued aa5 16:42 Follow up: IV Status: Completed infusion; Order to discontinue infusion aa5 13:24 Drug: NS 0.9% 1000 ml Route: IV; Rate: 1 bolus; Site: right antecubital; aa5 14:10 Follow up: IV Status: Completed infusion aa5 Outcome: 06:18 Patient left the ED. ak1 06:56 ER care complete, transfer ordered by . rn 08/23 09:25 Transferred by ground EMS to other acute care facility, Transfer form completed. em Condition: good Instructed on the need for transfer, Demonstrated understanding of instructions. 09:41 Patient left the ED. em Signatures: Krystal Casas rg2 Agustin Escalona MD MD cha Rittger, Kevin, MD MD kdr Munoz, Aquiles, WIRELESS TEAM MEMBER WIRELESS TEAM MEMBER em Yanira Hoskins RN RN bb Williams, Irene, Bonifacio Elizabeth RN, MD MD rn Martinez, Eric em1 Radha Del Castillo RN LONG aa5 Sandra Tamayo, RN RN lp1 Savana Méndez, RN RN tl1 Erin Youngblood Amber, RN RN ak1 Gillian Arizmendi, Yanely Jimenez RN, ph, LONG ALVES Ale Ervin RN RN tl2 Ofelia Fisher 3 tK Murphy RN RN jd3 Alexis Ambrose 2 Sultana Hager 5 Carola Gleason wj1 iLnda Wharton td Corrections: (The following items were deleted from the chart) 08/21 04:58 04:15 Safety Checks: Personal items have been removed. The door is open or patient has ak1 been placed in a hallway bed/chair. There are no family/friend visitors at this time Sitter present at this time. ak1 05:24 04:45 Safety Checks: Personal items have been removed. The door is open or patient has ak1 been placed in a hallway bed/chair. There are no family/friend visitors at this time Sitter present at this time. ak1 06:17 06:02 Reassessment: pt removed IV, refused to stay, left out ER back doors in hospital ak1 radha and rose marie. pt was told again prior to his leaving he had a longterm warrant and that [place] [employer] would be on the way. [place] [employer] dispatch contacted.. ak1 10: 07:00 Safety checks: Items removed: yes. Door open/sign placed on door: yes. ag Family/friend present: no. ag : 07:15 Safety checks: Items removed: yes. Door open/sign placed on door: yes. ag Family/friend present: no. ag 16:28 15:00 Safety checks: Items removed: yes. Door open/sign placed on door: yes. ag Family/friend present: yes. ag 16:29 15:30 Safety checks: Items removed: yes. Door open/sign placed on door: yes. ag ag 08/22 13:15 08/21 10:33 Safety checks: Items removed: yes. Door open/sign placed on door: yes. dh3 Family/friend present: no. ag 08/22 13:23 08/21 13:01 Safety checks: Items removed: yes. Door open/sign placed on door: yes. dh3 Family/friend present: no. ag 08/22 13:23 11:32 Safety checks: Items removed: yes. Door open/sign placed on door: yes. dh3 Family/friend present: yes. wj1 13:23 11:51 Safety checks: Items removed: yes. Door open/sign placed on door: yes. dh3 Family/friend present: yes. wj1 13:23 12:19 Safety checks: Items removed: yes. wj1 3 13:23 12:19 Safety checks: Door open/sign placed on door: yes. Family/friend present: yes. [id number] 13:25 13:00 Safety checks: Items removed: yes. Door open/sign placed on door: yes. dh3 Family/friend present: no. dh3 13: 11:30 Safety checks: Items removed: yes. Door open/sign placed on door: yes. dh3 Family/friend present: yes. 3 13: 11:45 Safety checks: Items removed: yes. Door open/sign placed on door: yes. dh3 Family/friend present: yes. 3 13: 12:15 Safety checks: Door open/sign placed on door: yes. Family/friend present: yes. [id number] 18:05 17:30 Reassessment: pt has had no other outbursts or attempts to leave since 0640 on 08-21-17. Pt has been cooperative and requesting to be sent to psych facility for suicidal ideation, pt states that if he is left alone he will try to do something to harm himself because he starts thinking about his son who was killed. Pt has never been restrained by ER staff, pt was only in handcuffs when police escorted pt back to the ER on 08-21-17, once pt was uncuffed at 0720 on 08-20-17 he has been cooperative and willing to be transferred to psych facility, pt is apologetic about his behavior and states that he is normally very cooperative with authority figures. iw 20:09 20:00 BP 99 / 59; Pulse 69bpm; Resp 19bpm; Spontaneous; Pulse Ox 97% RA; Temp 98.0F jd3 Oral; Pain 0/10; jd3 08/23 00:07 08/22 23:56 BP 102 / 69; Pulse 65bpm; Resp 18bpm; Pulse Ox 98%; Temp 97.9F; Pain 0/10; td td 08/23 03:18 03:16 Safety checks: Items removed: yes. Door open/sign placed on door: yes. td Family/friend present: no. td 08:42 08:14 Reassessment: report given to LONG Montes at [facility] in [facility], awaiting em administrative approval em
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
[2017-08-21] MEDS ORDERED: LORazepam 2 MG/ML VIAL ONE (06:46)
[2017-08-21] MEDS ORDERED: POTASSIUM 25 MEQ EFFERV TAB ONE (08:54)
[2017-08-21] MEDS ORDERED: NA CHLORIDE 0.9% 1,000 ML ONE (08:54)
[2017-08-21] MEDS ORDERED: KCL 20 MEQ/100 mL IVPB 20 MEQ/100 ML BAG IV ONE (08:54)
[2017-08-21] MEDS ORDERED: NS KCL 20MEQ 1,000 ML IV ONE (08:54)
--- NOTE | 2017-08-21 09:25 | EKG ---
Test Date: 2017-08-20 Test Time: 23:38:44 Glass Block Installer: LAUREN MEASUREMENT RESULTS: Intervals: Rate: 102 IA: 134 QRSD: 78 QT: 356 QTc: 463 [place] Heart: P: 61 IA: 134 QRS: 74 T: 46 INTERPRETIVE STATEMENTS: Sinus tachycardia Otherwise normal ECG Compared to ECG 06/19/2017 17:34:10 Sinus rhythm no longer present Electronically Signed On 08-21-17 09:24:22 CDT by Tl Roa
[2017-08-21 16:36] LABS: BUN Blood Urea Nitrogen 7 mg/dL (7-18); Bicarbonate 26 mmol/L (21-32); Glucose Level 93 mg/dL (74-106); Potassium 4.2 mmol/L (3.5-5.1); Sodium Level 142 mmol/L (136-145)
== END 2017-08-23 09:41 ==
LOC: ER 23:22
DX: F55.8 Abuse of other non-psychoactive substances (principal); T43.625A Adverse effect of amphetamines, initial encounter; F31.9 Bipolar disorder, unspecified; F32.9 Major depressive disorder, single episode, unspecified; F43.10 Post-traumatic stress disorder, unspecified
CPT/HCPCS: 36415; 80048; 80076; 80307; 80320; 80329; 81003; 85025; 85610; 85730; 93005; 96361; 96365; 96366; 96372; 96375; 99285; J7030